=== PATIENT | male | born 1945 | race Caucasian/White ===

== ENCOUNTER 2021-01-19 16:07 | Outpatient (REF) | payer MEDICARE, BC, SELFPAY ==
--- NOTE | 2021-01-19 16:00 | SKI_PTH ---
PATIENT: Humhprey Poole LOC: [facility] U#:[id number] AGE/SX: 75/M ROOM: RE01/19/[address]: Vishal Mcbride : 1945 BED: DIS: 01/19/2021 SPEC #: [id number] RECD: 01/20/21 11:57 STATUS: OFELIA REKeila #: [id number] OTF: 01/19/21 16:[address]: Vishal Mcbride DEPT: Surgical Specimen RECD BY: Isamar Driver Tissues: 1 - SKIN BIOPSY(SHAVE/PUNCH) Procedures: SKIN LEVEL 4 Comments: [id number]
== END 2021-01-19 16:08 | disposition home or self-care (01) ==
LOC: NCHCN 16:07
PROVIDERS: PCP Physician Assistant; Visit Provider Physician Assistant
DX: D18.01 Hemangioma of skin and subcutaneous tissue (principal)
CPT/HCPCS: 88305

== ENCOUNTER 2021-11-04 06:12 | Day surgery (SDC) | payer MEDICARE, BC, SELFPAY ==
[2021-11-04 06:20] VITALS: BP 172/86; PULSE 82; RESP 18; TEMP 36.5; O2SAT 100
[2021-11-04] MEDS: Tropicam./Phenyleph. (1/2.5%) 5 ML BTL OS ×3 (06:37→06:48)
--- NOTE | 2021-11-04 06:52 | ANES.PREOP_ITS ---
General Info Date of Service Date Performed: 11/04/21 Height: 5 ft 7.17 in Weight: 75.6 kg Body Mass Index (BMI): 25.9 Surgical Procedure: Operation Date: 11/04/21 07:40 Proposed Procedure Side Surgeon p Cataract Extraction with IOL Implant Left Felipe Larios MD Meds Allergies and Home Medications Allergies Allergy/AdvReac Type Severity Reaction Status Date / Time No Known Allergies Allergy Unverified 11/04/21 06:30 Home Medication Medication Instructions Recorded acetaminophen 500 mg tablet 500 mg PO Q12H PRN 11/02/21 (Acetaminophen Extra Strength) ascorbic acid (vitamin C) 500 mg 1,000 mg PO DAILY 11/02/21 tablet (Vitamin C) glucosamine sulfate 500 mg tablet 1,000 mg PO DAILY 11/02/21 (Glucosamine) omega-3 fatty acids 1 cap PO DAILY 11/02/21 Current Visit Medications: Current Medications Generic Name Dose Route Start Last Admin Trade Name Freq PRN Reason Stop Dose Admin Acetaminophen 1,000 mg 11/04/21 06:00 Acetaminophen 500 Mg Tab PO Q4H PRN PRN Miscellaneous Medication 0 ml 11/04/21 06:00 Prednisolone 1%, Moxifloxacin 0.5%, Nepafenac 0.1% 5ml Btl OS DIRECTED AMADO Miscellaneous Medication 0 ml 11/04/21 06:00 11/04/21 06:48 Tropicam./Phenyleph. (1/2.5%) 5 Ml Btl OS 1 drp DIRECTED AMADO Administration Tetracaine HCl 0 ml 11/04/21 06:00 Tetracaine 0.5% 4 Ml Btl OS DIRECTED [facility] Medical History Medical History (Updated 11/04/21 @ 07:06 by Felipe Larios MD) Cataract Diastolic murmur Tobacco Smoking/Tobacco Use Status: Former Tobacco Use Alcohol Alcohol Intake: former Substance Use Substance use: Never Substance use type: does not use Vital Signs and Lab Results Vital Signs Most Recent Vital Signs in EMR: Most Recent Vital Signs Temp Pulse Resp BP Pulse Ox 36.5 C 82 18 172/86 H 100 11/04/21 06:20 11/04/21 06:20 11/04/21 06:20 11/04/21 06:20 11/04/21 06:20 Lab Results Blood Type / Crossmatch: No Data to Display Complete Blood Count: No Data to Display Complete Metabolic Panel: No Data to Display Liver Function Panel: No Data to Display Coagulation Panel: No Data to Display Cardiac Panel: No Data to Display Arterial Blood Gas: No Data to Display Venous Blood Gas: No Data to Display Pancreas Panel: No Data to Display Thyroid Panel: No Data to Display Infectious Disease: No Data to Display Blood Cultures: No Data to Display Toxicology Panel: No Data to Display Anesthesia Assessment and Plan Anesthesia History Personal History: No History of Anesthesia Complications Family History: Family History Unknown Exercise Tolerance Exercise Tolerance: Metabolic Equivalents>4 Pertinent Negatives Pertinent Negatives: No Symptoms of GERD, No Major Cardiovascular Symptoms or Complaints, No Major Pulmonary Symptoms or Complaints and No History of CVA/TIA Cardiac & Pulmonary Exam Cardiac Exam: Normal S1/S2 Heart Sounds and Heart Murmur Present (Diastolic murmur getting worked up next week or so, mets >10, no symptoms) Pulmonary Exam: Clear Bilateral Breath Sounds Implantable Cardiac Device Does patient have a Pacemaker or an ICD?: No Airway Exam Known Difficult Airway: No Mallampati Class: 2 Mouth Opening: Normal (> 3cm) Thyromental Distance: Greater than 3 cm Neck Range of Motion: Full ROM Neck Circumference: Normal Teeth Condition: Normal Dentition ASA Classification ASA Score: ASA 2 Emergency Case?: No NPO Status NPO Status: NPO Clears >2 hours, Solids >8 hours Anesthesia Plan Resuscitation Status: Full Code Anesthesia Technique: MAC Anesthesia Airway Planned: Natural Airway Monitors Used: Standard Monitors
[2021-11-04 07:14] VITALS: BMI 25.9
[2021-11-04] MEDS: Tetracaine 0.5% 4 ML BTL OS (07:24)
[2021-11-04] MEDS: Lidocaine 2% Jelly 6 ML SYR (07:25)
[2021-11-04] MEDS: Povidone-Iodine Ophth 30 ML BTL (07:25)
[2021-11-04] MEDS: Balanced Salt Soln.-PLUS 500 ML BAG (07:30)
[2021-11-04] MEDS: Duovisc Viscoelastic System EACH 1 EACH (07:38)
[2021-11-04] MEDS: Trypan Blue 0.06% 0.5 ML SYR (07:39)
--- NOTE | 2021-11-04 07:58 | W.PM.DSUDISC ---
Discharge Plan Disposition Patient Disposition: HOME Condition: Good Discharge Details Attending Provider: Felipe Larios Primary Care Provider: Vishal Mcbride Home Meds and New Rx's Prescriptions: No Action glucosamine sulfate [Glucosamine] 500 mg Tablet 1,000 mg PO DAILY ascorbic acid (vitamin C) [Vitamin C] 500 mg Tablet 1,000 mg PO DAILY Fish Oil Capsule 1 cap PO DAILY acetaminophen [Acetaminophen Extra Strength] 500 mg Tablet 500 mg PO Q12H PRN Discharge Instructions Stand Alone Forms: Post-op Topical Cataract, Naye Pillai (DSU) Discharge Orders Discharge Orders: Discharge Order (Routine); Ordered 11/04/21 Ordered By: Felipe Larios
--- NOTE | 2021-11-04 07:59 | ROE_ITS ---
Date of service: 11/04/21 Time of Service: 07:59 Operative Note Operative Note DATE OF PROCEDURE: 11/04/21 PRE-OP DIAGNOSIS: Nuclear/cortical/posterior subcapsular cataract, left eye Poor red reflex secondary to cataract POST-OP DIAGNOSIS: same PROCEDURE: Cataract extraction using phacoemulsification with intraocular lens implant, left eye, using capsular staining with Vision Blue SURGEON: Felipe Larios ANESTHESIA TYPE: Local By Surgeon and MAC Refer to Anesthesia Record COMPLICATIONS: None Patient was transported to: same day Patient's condition: stable Implants: Wilfrido and Wilfrido / [employer] Tecnis [id number] Indications: Progressive decreased vision due to cataract, left eye, with poor red reflex Procedure Description: CATARACT SURGERY OPERATIVE REPORT PREOPERATIVE DIAGNOSIS: 1. Nuclear/cortical/posterior subcapsular cataract, left eye 2. Poor red reflex secondary to #1 POSTOPERATIVE DIAGNOSIS: Same OPERATION: 1. Cataract extraction using phacoemulsification with posterior chamber in traocular lens implant, left eye. 2. Capsular staining with Vision Blue IOL: IOL It Security Project Manager/Model: Wilfrido & Wilfrido / CAMERON Tecnis [id number] IOL Power: + 24.0 diopters IOL Serial Number: [id number] Optic Diameter: 6.0 mm Haptic/Overall Diameter: 13.0 mm PHACO INFO: Reuben Mobile[employer]urion Vision System with OZil and Active Fluidics Cumulative Dispersed Energy (CDE): 7.46 seconds SURGEON: Felipe Larios MD, CARMINA ANESTHESIA: Monitored A formerly [facility] Care (MAC), with local sub-tenon's anesthetic infiltration COMPLICATIONS: None SPECIMENS: None INDICATIONS FOR PROCEDURE: The patient is a 76-year-old gentleman with history of progressive decreased vision in his left eye secondary to the development of nuclear/cortical/posterior subcapsular cataract. 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 He is currently undergoing intravitreal injections for treatment. The option of cataract surgery in the left eye was offered to the patient and he wished to proceed. PROCEDURE: The correct surgical eye was identified and marked as the left eye and the pupil was dilated in the preoperative area using mydriatics and cycloplegics. The dilated pupil size was 4.5 mm. The patient elected to proceed without oral sedation. The patient was brought to the operating room where cardiopulmonary monitoring was instituted and surgical time-out was performed, confirming the correct operative eye and IOL power. Topical anesthesia was administered and ophthalmic povidone-iodine 5% was instilled into the conjunctival fornices. Lidocaine gel was applied to the cornea and the margarita-ocular area was prepped with Betadine 10% solution and draped in the usual sterile fashion for intraocular surgery, including an aperture drape. A Tegaderm transparent film dressing was cut in half and used to cover the lashes and lid margins. Care was taken to sequester the lashes and lid margins under the Tegaderm dressing. A lid speculum was placed between the lids of the operative eye and the Reuben Lux[employer] Revalia operating microscope was maneuvered into position. Daryn scissors were then used to make a conjunctival buttonhole approximately 6mm posterior to the limbus in the inferonasal quadrant. Blunt dissection was carried out to expose bare sclera, and a blunt-tipped sub-tenon?s anesthesia cannula was introduced and passed posteriorly along the globe where non- preserved plain lidocaine was injected into posterior sub-Tenon?s space. A sideport knife was used to make a paracentesis port superiorly/superiortemporally. Intraocular phenylephrine/lidocaine was injected int the anterior chamber.. Air was then injected into the anterior chamber, followed by Vision Blue, which was painted over the anterior capsule and then irrigated out using BSS. The anterior chamber was filled with viscoelastic. Viscoat was used to protect the corneal endothelium, and to provide some Visco dilation. A keratome knife was used to create a 2-plane near clear corneal tunnel extending approximately 2 mm into clear cornea temporally. A flap was raised on the anterior capsule and capsulorhexis forceps were used to complete a continuous curvilinear capsulorhexis of 5.0 mm. Balanced salt solution was then used to perform cortical cleaving hydrodissection and nuclear hydrodelineation until the lens could be freely rotated within the capsular bag. The lens nucleus was then disassembled and removed within the capsular bag and iris plane using phacoemulsification. Residual cortical material was removed using the 45-degree angled silicone I/A tip with 0.3mm port. The posterior capsule was carefully polished to remove as much residual lens epithelial cells as safely possible. The capsular bag was then inflated and the anterior chamber deepened with viscoelastic. The lens implant described above was inserted into the capsular bag using the CAMERON Crawford Injector. A Kuglen hook was used to dial the IOL into position. Residual viscoelastic was then removed first from posterior to the IOL, then from the anterior chamber using the I/A handpiece. The lens implant was noted to center nicely within the capsular bag. The incisions were stromally hydrated, and the anterior chamber was reformed using BSS. Then 0.5cc of moxifloxacin 1.0mg/ml were injected into the capsular bag and anterior chamber. The incisions were checked with a Weck spear and found to be secure. Several drops of ophthalmic povidone-iodine 5% were then applied to the eye followed by two drops of Imprimis combination prednisolone/moxifloxacin/nepafenac solution. The drapes were removed and a clear plastic protective eye shield was placed over the eye. The patient was then returned to Same Day Surgery in stable condition.
[2021-11-04 08:05] VITALS: BP 163/67; PULSE 71; RESP 16; TEMP 36.6; O2SAT 97
--- NOTE | 2021-11-04 08:20 | W.ANESPOSTOP ---
Postoperative Evaluation Date, Time and Location Date Performed: 11/04/21 Time Performed: 08:09 Patient Location: Day Surgery Unit Vital Signs Most Recent Imported Vital Signs: Most Recent Vital Signs Temp Pulse Resp BP Pulse Ox 36.6 C 71 16 163/67 H 97 11/04/21 08:05 11/04/21 08:05 11/04/21 08:05 11/04/21 08:05 11/04/21 08:05 Pain Score Most Recent Pain Score: Most Recent Pain Score Pain Level 0 11/04/21 08:05 Assessment Mental Status: Awake (Alert & Oriented to Patient Baseline) Airway and Respiratory Function: Patent airway with normal (patient baseline) respiratory exam Cardiovascular Function: Hemodynamically Stable Hydration Status: Adequately Hydrated Nausea & Vomiting: No Nausea or Vomiting Pain: Pt. Denies Any Pain Peripheral Nerve Block: Patient did not receive a nerve block
== END 2021-11-04 08:21 | disposition home or self-care (01) ==
PROVIDERS: PCP Physician Assistant; Visit Provider Ophthalmology
PROC: (CPT 66984; principal; 2021-11-04 07:30)
DX: H25.042 Posterior subcapsular polar age-related cataract, left eye (principal)
CPT/HCPCS: 66984

== ENCOUNTER → 2021-11-14 03:03 | Outpatient (CLI) | payer MEDICARE, BC, SELFPAY ==
--- NOTE | 2021-11-14 15:01 | DI.US_ITS ---
APPROVED REPORT EXAM: Comprehensive 2D, Doppler, and color-flow Echocardiogram Patient Location: Out-Patient Cutter Hand: Roma Olea RDCS (AE) Indications: New murmur Other Information Study Quality: Adequate Conclusion Normal left ventricular wall thickness and chamber size. Estimated ejection fraction is 65%. Wall m otion is normal Normal right ventricular size and systolic function Both atria are normal in size There is no structural or hemodynamically significant valvular disease Wall motion Left Ventricle The left ventricle is normal size. The left ventricular systolic function is normal. The left ventric ular ejection fraction is within the normal range. There is normal left ventricular wall thickness. T here is normal LV segmental wall motion. There is no ventricular septal defect visualized. LVEF is 65 %. Right Ventricle The right ventricle is normal size. The right ventricular systolic function is normal. The RVSP is 34 .8mmHg. Atria The left atrium size is normal. The right atrium size is normal. The interatrial septum is intact wit h no evidence for an atrial septal defect. Aortic Valve The aortic valve is normal in structure. Aortic valve is trileaflet. There is no aortic valvular sten osis. No aortic regurgitation is present. Mitral Valve The mitral valve is normal in structure. No evidence of mitral valve stenosis. Mild mitral regurgitat ion. Tricuspid Valve The tricuspid valve is normal in structure. There is no tricuspid valve stenosis. Mild tricuspid regu rgitation. Pulmonic Valve The pulmonary valve is normal in structure. There is no pulmonic valvular stenosis. Trace pulmonic re gurgitation. Great Vessels The aortic root is normal in size. The ascending aorta is mildly dilated. Aortic arch is normal in ca liber. IVC is normal in size and collapses >50% with inspiration. Pericardium There is no pericardial effusion. 2D Dimensions IVSD d PLAX 1.02 cm M: 0.6-1.2 LV Vol A2C d MOD 126.7 mL LVPW d PLAX 1.00 cm M: 0.6 - 1.2 LV Vol A4C d MOD 113.2 mL LVID d PLAX 5.14 cm M: 4.2 - 5.8 LA vol/ BSA A2C s A-L 36.8 mL/m2 LVDs 3.25 cm M: 2.5 - 4.0 LA vol/ BSA A4C s A-L 22.7 mL/m2 Ao Root d 3.63 cm M: 3.1 - 3.7 LA Vol/ BSA Biplane s A-L 30.3 mL/m2 RA Area A4C 13.04 cm2 LA Area A4C s MOD 16.01 cm2 RA Vol/ BSA A4C s A-L 14.3 mL/m2 LA Area A2C s MOD 21.37 cm2 Ao Asc Diam d 3.89 cm M: 2.6 - 3.4 LV EF A4C MOD 65.8 % LV EF Teichholz 65.5 % LV EF A2C MOD 65.1 % LVEF (Spears's) 66.79 % M: 52 - 72 LV EF Biplane MOD 66.8 % LV Volume 95.79 mL M: 62 - 150 SV 83.63 mL LV Volume Index 50.95 mL/m2 M: 34 - 74 SV Index 44.31 mL/m2 LV Vol Biplane MOD 125.2 mL FS 36.20 % M-Mode TAPSE 2.40 cm (M/F) >1.7 LV Diastology MV E' medial 0.110 (>0.07 m/s) E/A Ratio 0.8 LV E/e MED 7.00 (<14) MV E Vmax 0.77 (0.4-1.3 m/s) MV E' lateral 0.123 (>0.1 m/s) MV A Vmax 1.00 (0.4-1.3 m/s) LV E/e LAT 6.25 (<14) MV E/A Ratio 0.75 MV E/E' medial 7.03 MV E/E' lateral 6.27 Aortic Valve LVOT Area 3.33 cm2 AoV Area Vmax 2.47 cm2 LVOT Vmax 1.24 m/s AoV Area/ BSA (Vmax) 1.31 cm2/m2 LVOT Mean Erik. 0.78 m/s WILMA Mean Erik. 2.42 cm2 LVOT Peak Grad 6.2 mmHg WILMA Mean Erik. Index 1.28 cm2/m2 LVOT Mean Grad 2.9 mmHg LVOT VTI 0.277 m LVOT Diam s 2.05 cm AoV Vmax 1.68 m/s Velocity Ratio 0.73 AoV Mean Erik. 1.08 m/s AoV Peak Grad 11.3 mmHg LVOT SV 92.34 mL AoV Mean Grad 5.5 mmHg AoV VTI 0.317 m AoV Area VTI 2.91 cm2 AoV Area/ BSA (VTI) 1.54 cm/m2 Mitral Valve MV DT 204 (160-240 msec) MV PHT 59 msec MV Area PHT 3.71 cm2 MV VTI 0.305 m MV Area VTI 3.03 (4.0-6.0 cm2) Pulmonary Valve PV Vmax 1.03 (0.5-1.5 m/s) RVOT Peak Gr. 3.38 mmHg PV Peak Grad 4.2 mmHg RVOT Mean Gr. 1.75 mmHg PV Mean Grad 2.3 mmHg RVOT VTI 0.200 m PV VTI 0.214 m RVOT Vmax 0.92 m/s Tricuspid Valve TR Peak Grad 31.7 mmHg TR Vmax 2.82 m/s RA Pressure 3.00 mmHg RVSP (TR) 34.8 mmHg
== END ==
PROVIDERS: PCP Physician Assistant; Visit Provider Physician Assistant
DX: R01.1 Cardiac murmur, unspecified (principal)
CPT/HCPCS: 93306

== ENCOUNTER → 2022-01-12 02:05 | Outpatient (CLI) | payer MEDICARE, BC, SELFPAY ==
--- NOTE | 2022-01-12 | DI.RAD_ITS ---
Exam(s) XR SHOULDER LT COMPLETE 2+V EXAM: XR SHOULDER LT COMPLETE 2+V CLINICAL HISTORY: PAIN LEFT SHOULDER M25.512 TECHNIQUE: COMPARISON: No exams were available for comparison FINDINGS: Five views were obtained. There is severe loss of cartilaginous joint space of the glenohumeral join t. There are very prominent marginal osteophytes of the glenoid and humeral head, particularly infer iorly at the humeral head. There are subchondral sclerotic and cystic changes of the humeral head an d glenoid. There are mild hypertrophic degenerative changes of the AC joint noted as well. IMPRESSION: Severe DJD glenohumeral joint. RADIATION DOSE DELIVERED: Total DLP
== END ==
PROVIDERS: PCP Physician Assistant; Visit Provider Physician Assistant
DX: M19.012 Primary osteoarthritis, left shoulder (principal)
CPT/HCPCS: 73030

== ENCOUNTER 2022-08-29 11:39 | Inpatient (IN) | payer MEDICARE, BC, SELFPAY ==
[2022-08-29] VITALS (52 sets, daily range): BP systolic 71–171; BP diastolic 41–78; PULSE 65–106; RESP 8–31; TEMP 36.2–36.8; O2SAT 90–99
[2022-08-29] MEDS: Water,Injection,Sterile 10 ML VIAL (12:14)
[2022-08-29] MEDS: OLANZapine 10 MG VIAL IM (12:14)
[2022-08-29] MEDS: Midazolam 2 MG/2 ML VIAL 5 MG IM ×2 (12:14→18:45)
--- NOTE | 2022-08-29 12:15 | RT.EKG_ITS ---
APPROVED REPORT Exam: Resting ECG Reason for Exam: electrolyte abnormality Patient Location: E HR:92 bpm ECG Measurements Heart Rate 92 AXIS NH 169 P 42 QRSd 92 QRS -29 QT 368 T 23 QTc 456 Conclusion Sinus rhythm...normal P axis, V-rate 60- 99 Probable left atrial enlargement...P >50mS, <-0.10mV V1 Borderline ST elevation, anterior leads...ST >0.15mV in V1-V4
--- NOTE | 2022-08-29 12:15 | DI.CT_ITS ---
Exam(s) CT HEAD WO EXAM: CT HEAD WO CLINICAL HISTORY: ams. TECHNIQUE: Imaging Protocol: Axial computed tomography images with coronal and sagittal reformatted images were created and reviewed COMPARISON: No exams were available for comparison FINDINGS: Ventricles and Extra axial spaces: Normal in size and morphology for the patient's age. Hemorrhage: None. Cerebral parenchyma: There is no evidence of an acute territorial infarct. There are subtle areas of decreased attenuation in the white matter likely reflecting small vessel ischemic disease. Midline shift: None. Brainstem/Cerebellum: Normal. Calvarium: Normal. Visualized Paranasal sinuses/Mastoids: Clear. Soft Tissues: Unremarkable. IMPRESSION: 1. No acute intracranial process. 2. Findings were discussed with the emergency department at 1:21 p.m. on 08/29/2022. RADIATION DOSE DELIVERED: 766mGy.cm Total DLP DATA REPOSITORY: All CT scans at this facility are submitted to the National Radiology Data Registry (NRDR) Dose Index Registry (DIR) with the [employer] (ACR). RADIATION OPTIMIZATION: All CT scans at this facility use at least one of these dose optimization te chniques: automated exposure control; mA and/or kV adjustment per patient size (includes targeted exa ms where dose is matched to clinical indication); or iterative reconstruction.
--- NOTE | 2022-08-29 12:16 | ED.GENADUL_ITS ---
Discharge Plan Disposition Patient Disposition: Admit to [facility] Discharge Details Chief Complaint: GenMedical Clinical Impression: Acute delirium, AMS (altered mental status), Insomnia Admit Date/Time: 08/29/22 14:05 Admit Provider: Felipe Nicolas Attending Provider: Felipe Nicolas Primary Care Provider: Vishal Mcbride ED Provider: Shaan Coulter Medical Decision Making 76-year-old gentleman presents with altered mental status. Certainly could be d elirium especially in the setting of severe insomnia. He is agitated now and will not allow us to perform any tasks. He is altered and family is agreeable to us giving him some olanzapine and Versed to help him sleep and rest so that we may perform additional test. Nonfocal neurologic exam so less likely to represent stroke or other cause of his symptoms but will get CT head. Will get CBC to look for anemia. We will get broad labs look for electrolyte or metabolic cause of the patient's symptoms. No signs of infection on exam but will check chest x-ray and urinalysis to look for pneumonia and UTI respectively. Otherwise no focal signs of infection on exam. 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 Will await sedation as above and reevaluate after initial testing. Imaging Data Radiologic Study: Attestation: I personally reviewed and interpreted this imaging study as follows: Imaging: X-Ray (chest) My impression: unremarkable Radiologist's impression: unremarkable Radiologic Study #2: Attestation: I personally reviewed and interpreted this imaging study as follows: Imaging: CT Scan (ct head) My impression: unremarkable Radiologist's impression: unremarkable Lab Data Lab results reviewed: Yes I reviewed the patient's lab results. ECG Data Attestation: I personally reviewed and interpreted this ECG (s) as follows: Prior ECG tracings: available for review Interpretation: Normal sinus rhythm with normal rate. Normal intervals and no ST segment changes. HPI General Mode of arrival: ambulatory . Date/Time Provider Initiated Documentation: 08/29/22 11:51 . Limitations to Documentation: altered mental status . Information obtained by: patient and family . HPI Narrative: 76-year-old male previously healthy presents with altered mental status. Family says this happened in a similar episode about 10 years ago and he was admitted to [facility] for about 5 days and ended up self resolving. Family says for the last 4 days he has not slept. He started to act strange yesterday. Very confused last evening and not speaking to anyone. He will not give me any history when I try and speak with him. Denying any complaints. Related Data Home Medications Medication Instructions Recorded Confirmed acetaminophen 500 mg tablet 500 mg PO Q12H PRN 11/02/21 11/04/21 (Acetaminophen Extra Strength) ascorbic acid (vitamin C) 500 mg 1,000 mg PO DAILY 11/02/21 11/04/21 tablet (Vitamin C) glucosamine sulfate 500 mg tablet 1,000 mg PO DAILY 11/02/21 11/04/21 (Glucosamine) omega-3 fatty acids 1 cap PO DAILY 11/02/21 11/04/21 Allergies Allergy/AdvReac Type Severity Reaction Status Date / Time No Known Allergies Allergy Unverified 01/09/22 09:59 General Stated Complaint: GenMedical JOEL: 2 Review of Systems Unobtainable due to mental status PFSH All Active Problems (Updated 08/29/22 @ 15:56 by Shaan Coulter MD) AMS (altered mental status) (Acute) Insomnia (Acute) Acute delirium (Acute) Medical History Cataract Diastolic murmur Social History Smoking/Tobacco Use Status: Former Tobacco Use Quit Date: 04/09/66 Smoking risk assessment performed?: Yes Alcohol Intake: former Drug use: Never Substance use type: does not use Do you feel safe at home: Yes Do you feel safe in your relationship?: Yes Exam Const General: other (elderly but physically does not appear frail. ) Orientation: alert and awake [facility] Head: normal to inspection Ears: external ears normal Mouth: moist mucous membranes Eyes Pupils: PERRL EOM: EOM intact bilaterally and No nystagmus Neck Neck: full ROM and no tracheal deviation Chest Chest: normal inspection of the chest Resp Auscultation: clear to auscultation bilaterally Cardio Rate: regular rate Rhythm: regular rhythm GI Inspection: normal to inspection Palpation: soft, no guarding, not rigid and nontender Back/Spine/Pelvis Back: No no CVA tenderness Thoracic/Lumbar Spine: thoracic and lumbar spine normal to inspection Skin General skin exam: no rashes or lesions noted Neuro General: patient alert and patient awake Cranial Nerves: CN's II-XI intact bilaterally, PERRL and no nystagmus Cognition: abnormal cognition Motor: muscle tone normal throughout and strength 5/5 throughout Sensory Exam: no sensory deficits noted Extrem General: normal to inspection Psych Other: Agitated but redirectable by son. Course Reevaluation(s) Time: 15:55 Reevaluation: Labs and imaging unremarkable. Patient still acutely altered. Will need further monitoring for clinical improvement. Will admit to the hospitalist service for further treatment and monitoring. Consultations Consultation #1: diony. Time: 15:55 Vital Signs Vital signs: Vital Signs Temperature 36.2 C L 08/29/22 11:50 Pulse 100 H 08/29/22 11:50 Respiratory Rate 20 08/29/22 11:50 Blood Pressure 168/77 H 08/29/22 11:50 Pulse Oximetry 99 08/29/22 11:50 Temperature 36.2 C L 08/29/22 11:50 Pulse 100 H 08/29/22 11:50 Respiratory Rate 20 08/29/22 11:50 Blood Pressure 168/77 H 08/29/22 11:50 Blood Pressure Position Sitting 08/29/22 11:50 Pulse Oximetry 99 08/29/22 11:50 Oxygen Delivery Method Room Air 08/29/22 11:50 Oxygen Flow Rate 0 08/29/22 11:50
--- NOTE | 2022-08-29 12:22 | DI.RAD_ITS ---
Exam(s) XR CHEST 1V IN DI DEPT EXAM: XR CHEST 1V IN DI DEPT CLINICAL HISTORY: ams. ? pneumonia TECHNIQUE: 2D digital imaging was performed of the chest. One image was obtained. An AP view was ob tained. COMPARISON: No exams were available for comparison FINDINGS: MEDIASTINUM: Normal. HEART: Normal. PULMONARY VASCULATURE: Normal. LUNGS: Clear. PLEURAL SPACE: No pleural effusion or pneumothorax. BONE:Within normal limits for the patient's age. OTHER FINDINGS:Normal. IMPRESSION: No acute pulmonary findings. DATA REPOSITORY: RADIATION DOSE DELIVERED:
--- OUTSIDE RECORDS SUMMARY | 2022-08-29 12:25 | XMS_ITS | CCD ---
Author Name Unknown Address [address] [place] [address] [id number] Organization Unknown Address [address] [place] [address] [id number] Care Team Providers [employer] Name Role Phone YASHIRA SHELDON Attending Physician [phone] YASHIRA SHELDON Rounding (Secondary) Physician [phone] Vital Signs Unknown or Not Available. Allergies Unknown or Not Available. Procedures Unknown or Not Available. History of Immunizations Unknown or Not Available. Problems Unknown or Not Available. Results Unknown or Not Available. Active Medications Unknown or Not Available. Medications Administered During Visit Unknown or Not Available. Encounters Encounter Diagnosis Diagnosis Code Start Date Pain in left shoulder [id number] 04/18/2022 Social History Unknown or Not Available. Patient Decision Aids Unknown or Not Available. Discharge Instructions You were admitted to [facility] on 04/18/2022 14:23 with a principal diagnosis of Pain in left shoulder You were discharged from [facility] on 04/18/2022 00:00 Should you have any questions prior to discharge, please contact a member of your healthcare team. If you have left the hospital and have any questions, please contact your primary care physician. Chief Complaint and Reason For Visit Unknown or Not Available. Function Status Unknown or Not Available. Plan of Care Unknown or Not Available. Referral/Transition of Care Unknown or Not Available.
[2022-08-29 12:52] LABS: Abs Immature Grans 0.02 10^3/uL (0.0-0.06); Absolute Basophil Count 0.01 10^3/uL (0.0-0.2); Absolute Lymphocyte Count 0.39 10^3/uL (1.2-3.4); Absolute Neutrophil Count 8.29 10^3/uL (1.2-6.7); Basophils % 0.1; HCT 39.6 % (40.0-50.0); HGB 13.7 g/dL (13.5-17.5); Immature Grans % 0.2; Lymphocytes % 4.3; MCHC 34.6 % (32.0-36.0); MCV 87 fL (80-95); MPV 10.6 fL (8.0-11.0); Monocytes % 4.4; Platelet Count 273 10^3/uL (130-400); RBC 4.57 10^6/uL (4.36-5.78); RDW 11.4 % (11.8-14.1); RDW-SD 35.8 fL; WBC 9.11 10^3/uL (4.4-10.8)
[2022-08-29 13:02] LABS: Ammonia < 10 umol/L (11-32)
[2022-08-29 13:03] LABS: Prothrombin Time 10.4 sec (9.3-11.0)
[2022-08-29 13:16] LABS: ALT 34 U/L (16-63); AST 47 U/L (15-37); Albumin 4.3 g/dL (3.4-5.0); Alkaline Phosphatase 77 U/L (46-116); Anion Gap 9.6 mmol/L (3-11); BUN 13 mg/dL (7-18); Bilirubin, Total 0.6 mg/dL (0.2-1.0); CO2 26.4 mmol/L (21.0-32.0); CREATININE 0.8 mg/dL (0.70-1.30); Calcium 8.8 mg/dL (8.5-10.1); Chloride 96 mmol/L (98-107); ETHANOL BLOOD < 3.0 mg/dL (<10); Estimated GFR 92.87 (mL/min/1.73m2); Glucose 150 mg/dL (74-106); Magnesium 1.8 mg/dL (1.8-2.4); NT-proBNP 280 pg/mL (<300); Potassium 3.6 mmol/L (3.5-5.1); Sodium 132 mmol/L (136-145); TSH (W/Ref FT4) 0.63 uIU/mL (0.36-3.74); Total Protein 7.5 g/dL (6.4-8.2); Troponin I < 50 ng/L (<or=60)
--- NOTE | 2022-08-29 13:21 | NUR.NOTE ---
per MD Villanueva pts head CT is negative. report verbalized to MD Coulter
--- NOTE | 2022-08-29 14:07 | W.PM.HP.N ---
Date of service: 08/29/22 Time of Service: 14:07 Assessment and Plan Assessment and plan (1) Acute delirium: Status: Acute Assessment and plan: no medical explanation although urine still pending, need to add LP, anesthesia consulted. possibly d/t insomnia. possible new psychiatric disorder but no history of possible decompensation of undiagnosed dementia in setting of insomnia admit to hospitalist for further evaluation and monitoring received olanzapine and versed in the ED and now sleeping. safety precautions discussed with DR Nicolas. History of Present Illness History of Present Illness Chief Complaint: altered mental status Narrative: This is a 76 year old male with no significant past medical history who reportedly has not been sleeping past few nights who has developed increased confusion. He was brought to the ED for evaluation and no medical condition to explain his symptoms, although urine still pending at time of discharge. Hospitalist services contacted to admit for further evaluation and management. Review of Systems All systems reviewed & are unremarkable except as noted in HPI and below PFSH All Active Problems (Updated 08/29/22 @ 15:56 by Shaan Coulter MD) AMS (altered mental status) (Acute) Insomnia (Acute) Acute delirium (Acute) Medical History Cataract Diastolic murmur Social History Smoking/Tobacco Use Status: Former Tobacco Use Quit Date: 04/09/66 Smoking risk assessment performed?: Yes Alcohol Intake: former Drug use: Never Substance use type: does not use Do you feel safe at home: Yes Do you feel safe in your relationship?: Yes Meds Allergies and Home Medications Allergies Allergy/AdvReac Type Severity Reaction Status Date / Time No Known Allergies Allergy Unverified 01/09/22 09:59 Home Medications Medication Instructions Recorded Confirmed Type acetaminophen 500 mg tablet 500 mg PO Q12H PRN 11/02/21 11/04/21 History (Acetaminophen Extra Strength) ascorbic acid (vitamin C) 500 mg 1,000 mg PO DAILY 11/02/21 11/04/21 History tablet (Vitamin C) glucosamine sulfate 500 mg tablet 1,000 mg PO DAILY 11/02/21 11/04/21 History (Glucosamine) omega-3 fatty acids 1 cap PO DAILY 11/02/21 11/04/21 History Exam Const General: no acute distress Nutritional Appearance: average body habitus Orientation: obtunded Limitations: altered mental status HENMT Head: normal to inspection and atraumatic Face and sinus: normal facial exam Resp Effort & Inspection: normal respiratory effort Cardio Rate: regular rate Rhythm: regular rhythm GI Inspection: normal to inspection Skin General skin exam: no rashes or lesions noted Psych Appearance: grossly normal Mental Status: other (sedate) Mood: other (sedate) Results Labs 08/31/22 08:00 08/31/22 08:00 Labs: Laboratory Results - last 24 hr 08/29/22 08/29/22 08/29/22 12:44 12:44 12:44 WBC 9.11 RBC 4.57 Hgb 13.7 Hct 39.6 L MCV 87 MCH 30.0 MCHC 34.6 RDW 11.4 L Plt Count 273 MPV 10.6 Immature Gran % 0.2 Neutrophils % 91.0 Lymphocytes % 4.3 Monocytes % 4.4 Eosinophils % 0.0 Basophils % 0.1 Nucleated RBC % 0.0 Absolute Neutrophils 8.29 H Absolute Lymphocytes 0.39 L Absolute Monocytes 0.40 Absolute Eosinophils 0.00 Absolute Basophils 0.01 PT INR Sodium 132 L Potassium 3.6 Chloride 96 L Carbon Dioxide 26.4 Anion Gap 9.6 BUN 13 Creatinine 0.8 Est GFR (CKD-EPI 2020) 92.87 Glucose 150 H Calcium 8.8 Magnesium 1.8 Total Bilirubin 0.6 AST 47 H ALT 34 Alkaline Phosphatase 77 Ammonia < 10 L Troponin I < 50 NT-Pro-B Natriuret Pep 280 Total Protein 7.5 Albumin 4.3 TSH 0.63 Ethyl Alcohol < 3.0 08/29/22 12:44 WBC RBC Hgb Hct MCV MCH MCHC RDW Plt Count MPV Immature Gran % Neutrophils % Lymphocytes % Monocytes % Eosinophils % Basophils % Nucleated RBC % Absolute Neutrophils Absolute Lymphocytes Absolute Monocytes Absolute Eosinophils Absolute Basophils PT 10.4 INR 1.0 Sodium Potassium Chloride Carbon Dioxide Anion Gap BUN Creatinine Est GFR (CKD-EPI 2020) Glucose Calcium Magnesium Total Bilirubin AST ALT Alkaline Phosphatase Ammonia Troponin I NT-Pro-B Natriuret Pep Total Protein Albumin TSH Ethyl Alcohol Last Vital Signs Temp 36.2 C L 08/29/22 11:50 Pulse 100 H 08/29/22 11:50 Resp 14 08/29/22 12:57 BP 168/77 H 08/29/22 11:50 Pulse Ox 99 08/29/22 11:50 Time Spent Time spent with Patient: 40-54 minutes Time was spent: preparing to see the patient(eg.review tests), obtaining and/or reviewing separately otained hiistory, ordering medications,tests, procedures and indepentently interpreting results
--- NOTE | 2022-08-29 16:19 | ANES.PREOP_ITS ---
General Info Height: 5 ft 7 in Weight: 72.575 kg Body Mass Index (BMI): 25.0 Meds Allergies and Home Medications Allergies Allergy/AdvReac Type Severity Reaction Status Date / Time No Known Allergies Allergy Unverified 01/09/22 09:59 Home Medication Medication Instructions Recorded acetaminophen 500 mg tablet 500 mg PO Q12H PRN 11/02/21 (Acetaminophen Extra Strength) ascorbic acid (vitamin C) 500 mg 1,000 mg PO DAILY 11/02/21 tablet (Vitamin C) glucosamine sulfate 500 mg tablet 1,000 mg PO DAILY 11/02/21 (Glucosamine) omega-3 fatty acids 1 cap PO DAILY 11/02/21 Current Visit Medications: Current Medications Generic Name Dose Route Start Last Admin Trade Name Freq PRN Reason Stop Dose Admin Acetaminophen 650 mg 08/29/22 14:18 Acetaminophen 325 Mg Tab PO Q4H PRN PRN Dimethicone/Zinc Oxide 0 gm 08/29/22 14:05 Cristina Protect Cream 142 Gm Tube TP PRN PRN IV Miscellaneous Supplies 1 each 08/29/22 12:30 Iv Access-Emergency Dept IV DIRECTED AMADO Melatonin 3 mg 08/29/22 22:00 Melatonin 3 Mg Tab PO HS AMADO Sodium Chloride 0 ml 08/29/22 12:22 Normal Saline Flush 10 Ml Syr IVP PRN PRN PFSH Active Problems Active Problems: Problem Status Onset Code AMS (altered mental status) R41.82 Insomnia G47.00 Acute delirium R41.0 Cortical cataract of left eye H26.9 Nuclear sclerotic cataract of left eye H25.12 Posterior subcapsular age-related cataract of left eye H25.042 Medical History Medical History Cataract Diastolic murmur Tobacco Smoking/Tobacco Use Status: Former Tobacco Use Alcohol Alcohol Intake: former Substance Use Substance use: Never Substance use type: does not use Vital Signs and Lab Results Vital Signs Most Recent Vital Signs in EMR: Most Recent Vital Signs Temp Pulse Resp BP Pulse Ox 36.5 C 102 H 18 170/78 H 98 08/29/22 15:06 08/29/22 15:06 08/29/22 15:06 08/29/22 15:06 08/29/22 15:06 Lab Results 08/29/22 12:44 08/29/22 12:44 Blood Type / Crossmatch: No Data to Display Complete Blood Count: White Blood Count 9.11 10^3/uL (4.4-10.8) 08/29/22 12:44 Red Blood Count 4.57 10^6/uL (4.36-5.78) 08/29/22 12:44 Hemoglobin 13.7 g/dL (13.5-17.5) 08/29/22 12:44 Hematocrit 39.6 % (40.0-50.0) L 08/29/22 12:44 Platelet Count 273 10^3/uL (130-400) 08/29/22 12:44 Complete Metabolic Panel: Sodium 132 mmol/L (136-145) L 08/29/22 12:44 Potassium 3.6 mmol/L (3.5-5.1) 08/29/22 12:44 Chloride 96 mmol/L (98-107) L 08/29/22 12:44 Carbon Dioxide 26.4 mmol/L (21.0-32.0) 08/29/22 12:44 BUN 13 mg/dL (7-18) 08/29/22 12:44 Creatinine 0.8 mg/dL (0.70-1.30) 08/29/22 12:44 Est GFR (CKD-EPI 2020) 92.87 (mL/min/1.73m2) 08/29/22 12:44 Magnesium 1.8 mg/dL (1.8-2.4) 08/29/22 12:44 Calcium 8.8 mg/dL (8.5-10.1) 08/29/22 12:44 Albumin 4.3 g/dL (3.4-5.0) 08/29/22 12:44 Glucose 150 mg/dL (74-106) H 08/29/22 12:44 Liver Function Panel: Alanine Aminotransferase (ALT/SGPT) 34 U/L (16-63) 08/29/22 12: 44 Aspartate Amino Transf (AST/SGOT) 47 U/L (15-37) H 08/29/22 12: 44 Coagulation Panel: INR International Normalized Ratio 1.0 (0.9-1.1) 08/29/22 12:4 4 Prothrombin Time 10.4 sec (9.3-11.0) 08/29/22 12:44 Cardiac Panel: Troponin I < 50 ng/L (<or=60) 08/29/22 NT-Pro-B Natriuret Pep 280 pg/mL (<300) 08/29/22 Arterial Blood Gas: No Data to Display Venous Blood Gas: No Data to Display Pancreas Panel: No Data to Display Thyroid Panel: Thyroid Stimulating Hormone (TSH) 0.63 uIU/mL (0.36-3.74) 08/29 12:44 Infectious Disease: No Data to Display Blood Cultures: No Data to Display Toxicology Panel: Ethyl Alcohol Level < 3.0 mg/dL (<10) 08/29/22 12:44 Urine Amphetamines Screen Pending 08/29/22 12:45 Urine Benzodiazepines Screen Pending 08/29/22 12:45 Urine Barbiturates Screen Pending 08/29/22 12:45 Urine Cocaine Screen Pending 08/29/22 12:45 Urine Opiates Screen Pending 08/29/22 12:45 Ur Tricyclic Antidepressants Screen Pending 08/29/22 12: 45 Ur Tetrahydrocannabinol (THC) Scrn Pending 08/29/22 12:4 5 Anesthesia Assessment and Plan Anesthesia History Personal History: No History of Anesthesia Complications Family History: Family History Unknown Exercise Tolerance Exercise Tolerance: Metabolic Equivalents>4 Pertinent Negatives Pertinent Negatives: No Symptoms of GERD, No Major Cardiovascular Symptoms or Complaints, No Major Pulmonary Symptoms or Complaints and No History of CVA/TIA Cardiac & Pulmonary Exam Cardiac Exam: Normal S1/S2 Heart Sounds Pulmonary Exam: Clear Bilateral Breath Sounds Implantable Cardiac Device Does patient have a Pacemaker or an ICD?: No Airway Exam Known Difficult Airway: No Mallampati Class: 2 Mouth Opening: Normal (> 3cm) Thyromental Distance: Greater than 3 cm Neck Range of Motion: Full ROM Neck Circumference: Normal Teeth Condition: Normal Dentition ASA Classification Emergency Case?: No NPO Status NPO Status: NPO Clears >2 hours, Solids >8 hours Anesthesia Plan Resuscitation Status: Full Code Anesthesia Technique: Spinal Anesthesia Airway Planned: Natural Airway Monitors Used: Standard Monitors
[2022-08-29] MEDS: Ziprasidone 20 MG VIAL IM (16:20)
[2022-08-29] MEDS: dexmedeTOMidine IN 0.9 % NACL 400 MCG/100 ML BTL 5.443 MCG IV (18:30)
[2022-08-29] MEDS: Normal Saline Flush 10 ML SYR IVP (18:31)
--- NOTE | 2022-08-29 19:07 | ANES.PROC_ITS ---
Lumbar Puncture Date Performed: 08/29/22 Procedure Time: 19:00 Requesting Provider: Felipe Nicolas Procedure Location: Intensive Care Unit Standard Monitors Applied: ECG, Blood Pressure, SpO2 and See EMR for corresponding vital signs Patient Position: Right Lateral Decubitus Timeout Performed: Yes Sedation Given (Indicate Dose Given): Directed by Requesting Provider (melodiex gtt), Versed IV Dose:: 2 mg and Precedex IV Dose:: Total of 36 mcg given in 8- 12mcg doses Patient Mental Status: Other (altered mental status, slightly sedated) Sterility: Hand Hygiene, Surgical Cap, Surgical Mask, Sterile Gloves, Sterile Drape/Sheet, Chlorhexidine and Emergency Procedure Placement Site: L4-L5 Interspace Spinal Needle Type: [employer] 22 Gauge Needle Length: 3.5 Inch Lumbar Puncture Procedure: Site Prepped, Sterile Drape Placed, 1% Lidocaine to skin and subcutaneous tissue with 25G needle, Spinal Needle Placed, Negative Heme, Positive CSF Flow, CSF Specimen placed into Tubes in Sequential Order and Specimen Labeled, Sent to Lab (by RN) Ultrasound: Not Used Paresthesia: None Number of Previous Attempts by Other Providers: 0 Number of Attempts (See previous attempts in note section): 1 Procedure Tolerated: No Complications Procedure Outcome: Successful Procedure Comment:: Titrated precedex and midazolam to a state of increased cooperation over approx 20 min before procedure start. Still required 2 nurses to hold patient in position and still enough to obtain CSF samples. VSS, spont resp, no O2 needed. Performed By: Juana Noble
[2022-08-29 19:29] LABS: Bilirubin Negative (Negative); Blood Negative (Negative); Clarity Clear (Clear); Glucose Negative (Negative); Ketones 80 mg/dL (Negative); Leukocyte Esterase Negative (Negative); Nitrite Negative (Negative); Specific Gravity 1.015 (1.005-1.025); Urobilinogen 0.2 mg/dL (Up to 0.2)
[2022-08-29 19:33] LABS: *AMPHETAMINES SCREEN URINE Negative (Negative); *BARBITURATES SCREEN URINE Negative (Negative); *BENZODIAZEPINES SCREEN URINE Positive (Negative); Cannabinoids THC Negative (Negative); Cocaine Screen,Urine Negative (Negative); METHADONE URINE SCREEN Negative (Negative); OPIATES URINE SCREEN Negative (Negative)
[2022-08-29 19:34] LABS: Tricyclic Antidepressants Negative (Negative)
[2022-08-29 19:35] LABS: Bacteria Negative HPF (Negative); C & S Indicated? No; Casts Negative LPF (Negative); Crystals Negative HPF (Negative); Epithelial Cells Rare HPF (Negative); Mucus Negative (Negative); RBC 0-2 HPF (0-2); WBC 0-2 HPF (0-5)
[2022-08-29] MEDS: Lidocaine 2% Jelly 6 ML SYR (19:35)
[2022-08-29 19:54] LABS: Clarity Clear; Glucose (CSF) 86 mg/dL (40-70); RBC 1 /mm3 (0-5); Tube # 4; WBC 1 /uL (0-5); Xanthochromia Absent
[2022-08-29 20:02] LABS: Total Protein (CSF) 46 mg/dL (15-45)
[2022-08-29] MEDS: Normal Saline 500 ML 30 ML IV (20:35)
[2022-08-29] MEDS: cefTRIAXone 2 GM/50 ML BAG IVPB (21:47)
--- NOTE | 2022-08-29 22:29 | NUR.NOTE ---
Pt's calls states pt has always been driven, has OCD behavior and refused health care/mental health care. pt never sleeps well. Yrs ago he stopped sleeping for days and became confused and irritable but was not violent. this time he stopped sleeping again and last night I became afraid and called my son to come over. my was up for days becoming more and more irritable and confused and had been sitting in his room writing. My son cam over and just keep writing all night. My son left. In the morning I woke to my coming into my room, we have separate bedrooms, and he said, 'i'm going to live forever, Im going to kill you' then he jumped ontop of me on my bed, I screamed, ' stop it!' and kicked my knee into him and got away. I am scared, will you call if he leaves the hospital? What should I do? gave number for [employer] to , advised calling them for more guidance. Advised that would post note here on communication board to call her if he DC'd. Nursing Note:
[2022-08-29] MEDS: Normal Saline 1,000 ML 125 ML IV (22:40)
[2022-08-30] VITALS (42 sets, daily range): BP systolic 87–164; BP diastolic 49–84; PULSE 62–88; RESP 10–24; TEMP 36.6–38.9; O2SAT 90–96
[2022-08-30] MEDS: dexmedeTOMidine IN 0.9 % NACL 400 MCG/100 ML BTL 7.258 MCG IV ×2 (06:07→20:01)
[2022-08-30 06:27] LABS: Abs Immature Grans 0.02 10^3/uL (0.0-0.06); Absolute Basophil Count 0.01 10^3/uL (0.0-0.2); Absolute Lymphocyte Count 0.75 10^3/uL (1.2-3.4); Absolute Monocyte Count 0.84 10^3/uL (0.1-0.8); Absolute Neutrophil Count 7.19 10^3/uL (1.2-6.7); Basophils % 0.1; HCT 35.9 % (40.0-50.0); HGB 12.5 g/dL (13.5-17.5); Immature Grans % 0.2; Lymphocytes % 8.5; MCH 30.7 pg (27.0-33.0); MCHC 34.8 % (32.0-36.0); MCV 88 fL (80-95); MPV 10.6 fL (8.0-11.0); Monocytes % 9.5; Neutrophils % 81.7; Platelet Count 257 10^3/uL (130-400); RBC 4.07 10^6/uL (4.36-5.78); RDW 11.6 % (11.8-14.1); RDW-SD 37.2 fL; WBC 8.81 10^3/uL (4.4-10.8)
[2022-08-30 06:40] LABS: Anion Gap 4.5 mmol/L (3-11); BUN 16 mg/dL (7-18); CO2 27.5 mmol/L (21.0-32.0); CREATININE 1.1 mg/dL (0.70-1.30); Calcium 8.6 mg/dL (8.5-10.1); Chloride 102 mmol/L (98-107); Estimated GFR 70.44 (mL/min/1.73m2); Glucose 115 mg/dL (74-106); Potassium 4.1 mmol/L (3.5-5.1); Sodium 134 mmol/L (136-145)
[2022-08-30] MEDS: cefTRIAXone 2 GM/50 ML BAG IVPB (08:17)
[2022-08-30] MEDS: Normal Saline 1,000 ML 125 ML IV ×2 (08:18→20:00)
--- NOTE | 2022-08-30 09:45 | INITIAL_ITS ---
Date of service: 08/30/22 Time of Service: 09:46 Care Management Initial Assmt Initial Assessment REASON FOR HOSPITALIZATION:: Delirium PREVIOUS FUNCTIONAL STATUS/SOCIAL/FAMILY SUPPORTS:: Humphrey lives in [place] with his , Shellie. CURRENT FUNCTIONAL STATUS:: Humphrey was lying in bed when CM met with him. He was pleasant in interaction, but was limited in providing information. CM asked additional questions about his recollection of events leading up to his hospitalization. He was hesitant to provide information, but stated I am God, I have been around longer than time, and my time is coming. He stated that his p mariam will be to be taken away, although he did not verbalize where he would go. CM contacted [facility], per MD request, who screened him and are seeking inpatient psychiatric care for his paranoid delusions and psychosis. Referrals were sent to [facility], [facility], and [facility]. CM will continue to follow. ADVANCE DIRECTIVES:: None on file Has patient been provided with info about the portal/API?: Yes Did the patient sign up for the portal?: No CODE STATUS:: Full Code INSURANCE COVERAGE / FINANCIAL ISSUES:: MCR/ BCBS CURRENT HOME/COMMUNITY SERVICES/EQUIPMENT:: None PRIMARY CARE PHYSICIAN:: Vishal Mcbride POTENTIAL DISCHARGE NEEDS:: Evaluations for further needs, follow up appointments. PATIENT/FAMILY EDUCATION NEEDS:: Review discharge instructions and limitations, discussion of self care needs including ask me three. ANTICIPATED BARRIERS TO DISCHARGE:: None identified. TRANSPORTATION:: Via private vehicle by family. PLAN:: Humphrey will continue to be evaluated for his need to have inpatient psychiatric care daily. Referrals are pending at [facility], [facility] and [facility]. He will transport via EMS vs [employer]. He will follow up with his PCP and discharge plan of care. CM will continue to follow. PFSH All Active Problems (Updated 08/29/22 @ 15:56 by Shaan Coulter MD) AMS (altered mental status) (Acute) Insomnia (Acute) Acute delirium (Acute) Medical History Cataract Diastolic murmur Social History Smoking/Tobacco Use Status: Former Tobacco Use Quit Date: 04/09/66 Smoking risk assessment performed?: Yes Alcohol Intake: former Drug use: Never Substance use type: does not use Do you feel safe at home: Yes Do you feel safe in your relationship?: Yes
--- NOTE | 2022-08-30 12:44 | PGE_ITS ---
Date of Service Date of service: 08/30/22 Time of Service: 12:44 Assessment and Plan Assessment and plan (1) Acute delirium: Status: Acute Assessment and plan: Acute delirium with agitation that developed after admission requiring restraints, chemical with IM Geodon, and physical. Transferred to the ICU Continues on precedex drip. Calm and conversant today. He relates that he is God, he will ignite down by the elevator in several days and speaks of people that are cannibals at night. No known psychiatric diagnosis. Mental Health consult. Will given oral Geodon and try to wean off precedex. Subjective Subjective Patient reports: afebrile; denies shortness of breath Interval history since last seen: Pt remains in soft restraints as precaution to protect himself and staff. On precedex drip. Calm. Conversant. ICU nurse manager workers compensation relates her conversation with him that indicates delusions and paranoia. Exam Narrative Exam Narrative: Lying with 4 point soft constraints. Calm. Alert. Oriented to self. Eyes General: appearance normal, both eyes and all related structures Sclera: sclerae normal Resp Effort & Inspection: normal respiratory effort Auscultation: clear to auscultation bilaterally Cardio Rate: regular rate Rhythm: regular rhythm Heart Sounds: S1 normal and S2 normal Neuro General: no focal motor deficits Cranial Nerves: facial strength normal Gait: normal gait Motor: no tremors Extrem General: no pedal edema and no calf tenderness Psych Appearance: grossly normal Affect: blunted Thought Content: delusions Insight: poor Objective Last Vital Signs Temp 37.8 C H 08/30/22 11:36 Pulse 78 08/30/22 11:00 Resp 18 08/30/22 11:00 BP 138/66 08/30/22 09:41 Pulse Ox 94 08/30/22 08:02 Laboratory Results - last 24 hr 08/29/22 08/29/22 08/29/22 12:44 12:44 12:44 WBC 9.11 RBC 4.57 Hgb 13.7 Hct 39.6 L MCV 87 MCH 30.0 MCHC 34.6 RDW 11.4 L Plt Count 273 MPV 10.6 Immature Gran % 0.2 Neutrophils % 91.0 Lymphocytes % 4.3 Monocytes % 4.4 Eosinophils % 0.0 Basophils % 0.1 Nucleated RBC % 0.0 Absolute Neutrophils 8.29 H Absolute Lymphocytes 0.39 L Absolute Monocytes 0.40 Absolute Eosinophils 0.00 Absolute Basophils 0.01 Xanthochromia PT INR Sodium 132 L Potassium 3.6 Chloride 96 L Carbon Dioxide 26.4 Anion Gap 9.6 BUN 13 Creatinine 0.8 Est GFR (CKD-EPI 2020) 92.87 Glucose 150 H Calcium 8.8 Magnesium 1.8 Total Bilirubin 0.6 AST 47 H ALT 34 Alkaline Phosphatase 77 Ammonia < 10 L Troponin I < 50 NT-Pro-B Natriuret Pep 280 Total Protein 7.5 Albumin 4.3 TSH 0.63 Urine Color Urine Clarity Urine pH Ur Specific [place] Urine Protein Urine Ketones Urine Blood Urine Nitrite Urine Bilirubin Urine Urobilinogen Ur Leukocyte Esterase Urine RBC Urine WBC Ur Epithelial Cells Urine Crystals Urine Bacteria Urine Casts Urine Mucus Ur Culture Indicated? Urine Glucose Fluid Source Fluid Color Fluid Clarity Fluid WBC Fld Polynuclear WBCs % Fluid Mononuclear Cell Fluid Other Cells Fluid Glucose CSF Tube Number CSF Color CSF Clarity CSF WBC CSF RBC CSF Diff Comment CSF Glucose CSF Total Protein Urine Opiates Screen Urine Methadone Screen Ur Barbiturates Screen Ur Tricyclics Screen Ur Amphetamines Screen U Benzodiazepines Scrn Urine Cocaine Screen Ur THC Screen Ethyl Alcohol < 3.0 Path Cons Comment 08/29/22 08/29/22 08/29/22 12:44 18:45 18:45 WBC RBC Hgb Hct MCV MCH MCHC RDW Plt Count MPV Immature Gran % Neutrophils % Lymphocytes % Monocytes % Eosinophils % Basophils % Nucleated RBC % Absolute Neutrophils Absolute Lymphocytes Absolute Monocytes Absolute Eosinophils Absolute Basophils Xanthochromia PT 10.4 INR 1.0 Sodium Potassium Chloride Carbon Dioxide Anion Gap BUN Creatinine Est GFR (CKD-EPI 2020) Glucose Calcium Magnesium Total Bilirubin AST ALT Alkaline Phosphatase Ammonia Troponin I NT-Pro-B Natriuret Pep Total Protein Albumin TSH Urine Color Yellow Urine Clarity Clear Urine pH 7.0 Ur Specific [place] 1.015 Urine Protein 30 H Urine Ketones 80 H Urine Blood Negative Urine Nitrite Negative Urine Bilirubin Negative Urine Urobilinogen 0.2 Ur Leukocyte Esterase Negative Urine RBC 0-2 Urine WBC 0-2 Ur Epithelial Cells Rare Urine Crystals Negative Urine Bacteria Negative Urine Casts Negative Urine Mucus Negative Ur Culture Indicated? No Urine Glucose Negative Fluid Source Fluid Color Fluid Clarity Fluid WBC Fld Polynuclear WBCs % Fluid Mononuclear Cell Fluid Other Cells Fluid Glucose CSF Tube Number CSF Color CSF Clarity CSF WBC CSF RBC CSF Diff Comment CSF Glucose CSF Total Protein Urine Opiates Screen Negative Urine Methadone Screen Negative Ur Barbiturates Screen Negative Ur Tricyclics Screen Negative Ur Amphetamines Screen Negative U Benzodiazepines Scrn Positive A Urine Cocaine Screen Negative Ur THC Screen Negative Ethyl Alcohol Path Cons Comment 08/29/22 08/29/22 08/29/22 19:00 19:00 19:00 WBC RBC Hgb Hct MCV MCH MCHC RDW Plt Count MPV Immature Gran % Neutrophils % Lymphocytes % Monocytes % Eosinophils % Basophils % Nucleated RBC % Absolute Neutrophils Absolute Lymphocytes Absolute Monocytes Absolute Eosinophils Absolute Basophils Xanthochromia Absent PT INR Sodium Potassium Chloride Carbon Dioxide Anion Gap BUN Creatinine Est GFR (CKD-EPI 2020) Glucose Calcium Magnesium Total Bilirubin AST ALT Alkaline Phosphatase Ammonia Troponin I NT-Pro-B Natriuret Pep Total Protein Albumin TSH Urine Color Urine Clarity Urine pH Ur Specific [place] Urine Protein Urine Ketones Urine Blood Urine Nitrite Urine Bilirubin Urine Urobilinogen Ur Leukocyte Esterase Urine RBC Urine WBC Ur Epithelial Cells Urine Crystals Urine Bacteria Urine Casts Urine Mucus Ur Culture Indicated? Urine Glucose Fluid Source Cancelled Fluid Color Cancelled Fluid Clarity Cancelled Fluid WBC Cancelled Fld Polynuclear WBCs % Cancelled Fluid Mononuclear Cell Cancelled Fluid Other Cells Cancelled Fluid Glucose CSF Tube Number 4 CSF Color Colorless CSF Clarity Clear CSF WBC 1 CSF RBC 1 CSF Diff Comment Not Applicable CSF Glucose 86 H CSF Total Protein 46 H Urine Opiates Screen Urine Methadone Screen Ur Barbiturates Screen Ur Tricyclics Screen Ur Amphetamines Screen U Benzodiazepines Scrn Urine Cocaine Screen Ur THC Screen Ethyl Alcohol Path Cons Comment Cancelled 08/29/22 08/30/22 08/30/22 19:25 06:10 06:10 WBC 8.81 RBC 4.07 L Hgb 12.5 L Hct 35.9 L MCV 88 MCH 30.7 MCHC 34.8 RDW 11.6 L Plt Count 257 MPV 10.6 Immature Gran % 0.2 Neutrophils % 81.7 Lymphocytes % 8.5 Monocytes % 9.5 Eosinophils % 0.0 Basophils % 0.1 Nucleated RBC % 0.0 Absolute Neutrophils 7.19 H Absolute Lymphocytes 0.75 L Absolute Monocytes 0.84 H Absolute Eosinophils 0.00 Absolute Basophils 0.01 Xanthochromia PT INR Sodium 134 L Potassium 4.1 Chloride 102 Carbon Dioxide 27.5 Anion Gap 4.5 BUN 16 Creatinine 1.1 Est GFR (CKD-EPI 2020) 70.44 Glucose 115 H Calcium 8.6 Magnesium Total Bilirubin AST ALT Alkaline Phosphatase Ammonia Troponin I NT-Pro-B Natriuret Pep Total Protein Albumin TSH Urine Color Urine Clarity Urine pH Ur Specific [place] Urine Protein Urine Ketones Urine Blood Urine Nitrite Urine Bilirubin Urine Urobilinogen Ur Leukocyte Esterase Urine RBC Urine WBC Ur Epithelial Cells Urine Crystals Urine Bacteria Urine Casts Urine Mucus Ur Culture Indicated? Urine Glucose Fluid Source Fluid Color Fluid Clarity Fluid WBC Fld Polynuclear WBCs % Fluid Mononuclear Cell Fluid Other Cells Fluid Glucose Cancelled CSF Tube Number CSF Color CSF Clarity CSF WBC CSF RBC CSF Diff Comment CSF Glucose CSF Total Protein Urine Opiates Screen Urine Methadone Screen Ur Barbiturates Screen Ur Tricyclics Screen Ur Amphetamines Screen U Benzodiazepines Scrn Urine Cocaine Screen Ur THC Screen Ethyl Alcohol Path Cons Comment Time Spent with Patient Time Spent with Patient: 25-34 minutes Time was spent: preparing to see the patient(eg.review tests), obtaining and/or reviewing separately otained hiistory, ordering medications,tests, procedures, referring, communicating with other health medicare contact specialist, indepentently interpreting results and care coordination
--- NOTE | 2022-08-30 13:06 | NUR.NOTE ---
08/30/22: 1215: patient awake lying in bed, with four point restraints on. Asked if he was hungry. Patient declined his lunch stating I am not hungry then patient asked me are we having lift off today? when patient was asked to clarify his question he wanted to know when they are taking me away? referring to the [facility] crew that had arrived & left with a patient in the adjacent room. Explained to the patient that he would be remaining in his room and he was accepting of this. Patient stated twice that he was god and that he would be in 2-3 days because they are going to kill me. 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 He did know know who sent them and his customers told him he was God. The patient repeated he was god several times. The patient relayed that he has been very worried about the state of the world lately and people are making plans. He could not clarify what that meant but the patient went on to say that they have been eating humans, it happens at night. They all me about t the next day in my shop. One man asked me if I ever ate liver with skin on it. I didn't know what he was talking about I told him I ate liver now and then and then the elan asked me who it was? They are all doing it, making plans and being cannibals My is too. I don't know why While assessing him the patient was able to relay that he did not remember being sick recently or if he had a tick bite. He relayed that someone asked him the same questionsyesterday. He could not say why he was in the hospital and thought it had something to do with him being God and that he was going to in about 3-4 days. the patient remained calm during the conversation. 1250: Information was relayed to Dr. Nicolas. 1300: Mental health workers Clementina & Jose in room to talk with patient.
--- NOTE | 2022-08-30 13:28 | NUR.NOTE ---
Nursing Note: Mental Health services in from from approximately 1305 to 1327.
--- NOTE | 2022-08-30 15:51 | PDOC.MHCN ---
Date of service: 08/30/22 Time of Service: 12:39 PHQ-9 Over the last 2 weeks, how often have you been bothered by any of the following problems? 1. Little interest or pleasure in doing things: several days 2. Feeling down, depressed, or hopeless: several days 3. Trouble falling or staying asleep, or sleeping too much: more than half the days 4. Feeling tired or having little energy: nearly every day 5. Poor appetite or overeating: several days 6. Feeling bad about yourself - or that you are a failure or have let yourself and your family down: several days 7. Trouble concentrating on things, such as reading the newspaper or watching television: not at all 8. Moving or speaking so slowly that other people could have noticed? - Or the opposite - being so fidgety or restless that you have been moving around a lot more than usual: more than half the days 9. Thoughts that you would be better off or of hurting yourself in some way: not at all Total score: 11 Source: Developed by Drs. Sudheer Cruz, Tete Billings, Trent Rodriguez and colleagues, with an educational kelby from [employer]. Suicide Severity Rate CSSRS Have you wished you were or wished you could go to sleep and not wake up?: No Have you actually had any thoughts of killing yourself?: No CSSRS2 Have you been thinking about how you might do this?: No Screening Score Total Score: 0 Screening: Negative Mental Health Emergency Note Release [facility] release signed:: No Reason for Visit the client presented to the ED on 08/29 with altered mental status In the last 2 weeks has the pt presented for ES prior to today?: No Client Information Client is: Adult Outpatient Well Housed: Yes Non Suicidal Self Injury Current: No History: No Safety Risk/Harm to Self or Others Current Ideation to Harm Self or Others: No Risk: Does risk to harm exist?: No Duty to warn indicated: No Asssessment/Mental Status Appearance: Disheveled Attitude: Cooperative Behavior: Repetitive movements Speech: Soft and Hesitant Affect: Blunted and Cogruent with mood Mood: Euphoric and Expansive Thought process: Loose associations and Flight of ideas Hallucinations: No Delusions: yes, Persectory/Paranoid and Bizarre Attention: Wandering and Inattention Perception: Derealization Orientation: Fully orientated Memory: Intact Insight: Poor Judgement: Poor Neurovegetative Symptoms Sleep: Decrease Appetitie: Decrease Interests: No change Energy: Decrease Libido: Not applicable Substance Use: Do you use nicotine?: No Have you used substances in the last 7 days?: No Additional Issues: Assaultive/Threatening Behavior: No Medical Concerns: No Client engaged in active self harm w/weapon: No Threatening to run away: No Child reported abuse/neglect: No Voluntarily presenting for services: Yes Domestic violence is a concern: No Extreme Psychosis or extreme behavior is present: Yes Impression The client presented in the ED on 08/29 with altered mental status. The client reports delusional statements Plan/Disposition Recommended Disposition: Hospitalization ([facility], [facility], [facility], [facility]) facilities contacted. Plan: The Client will remain at [facility] until volunatry inpatient hospitalization can be secured Person reported agreement to plan: Yes Reports/communication Outcome discussed with: PCP/Personnel
--- NOTE | 2022-08-30 15:58 | CMSP_ITS ---
Date of service: 08/30/22 Time of Service: 15:58 Care Management Safety Plan Status Status: Voluntary Reason for Wait Reason for Wait: Inpatient Admission Safety Plan Safety Plan: VOLUNTARY FOR INPATIENT PSYCHIATRIC STABILIZATION.? Patient is appropriate in all interactions since arriving at [facility]; Pt has demonstrated appropriate coping and communication skills, has articulated his or her needs and concerns and is fully engaged during staff interactions. Safety plan has been established with patient, and care team, to adhere to patient goals, identify restrictions based on behavioral status, address nutrition, and determine allowed personal belongings, tools for hygiene and personal care. Determine level of activity including ambulation, level of supervision, visitors, and determine privileges based on behaviors and level of engagement by pt. SAFETY PLAN: 1. Will remain on suicide precautions. In Paper Clothes or hospital scrubs. 2. Will remain in room under direct supervision of one-on-one staff at all times provided by [employer]; EMILIA, COMPUTER TECHNICAL SPECIALIST furniture restorer. 3. May have paper cups, plates, finger foods as well as a cardboard spoon with which to eat meals. 4. Follow [facility] Management of the Admitted Behavioral Health Patient policy. 5. Comfort bath system only, shower permitted with escort at RN discretion. 6. No personal belongings-soft items permitted at RN discretion. 7. Visitors- family, at RN discretion. 8. Activities: soft cart items approved per RN discretion. 9.? Bathroom privileges with escort in the ED, available in room without limitation on M/S. 10. Phone: contact limited to family at this time, via cordless phone at RN discretion. 11. Due to VOLUNTARY status, if patient wishes to leave [facility], staff will contact [facility] Crisis Screener ([phone]) and On-Call Financial Institution President ([phone]) as soon as possible. In the event of elopement, notify [place] [employer] ([phone]). Patient is currently voluntarily at [facility] and seeking inpatient admission when a bed becomes available. [facility] Frontline Systems Trainer will continue seeking placement. Please contact the [employer] Financial Institution President ([phone]) and [facility] Systems Trainer ([phone]) for any needed changes in the Safety Plan. Safety plan has been provided to interdepartmental care team.
[2022-08-30] MEDS: Ziprasidone 20 MG CAP PO ×2 (16:17→21:49)
[2022-08-30] MEDS: Normal Saline 250 ML 500 ML IV (16:19)
[2022-08-30] MEDS: Melatonin 3 MG TAB PO (21:49)
[2022-08-30] MEDS: Acetaminophen 325 MG TAB 650 MG PO (21:49)
[2022-08-30 23:30] LABS: HSV 1 DNA Result Negative (Negative); HSV 2 DNA Result Negative (Negative)
[2022-08-30] MEDS: risperiDONE 1 MG TAB 2 MG PO (23:50)
[2022-08-31] VITALS (59 sets, daily range): BP systolic 106–183; BP diastolic 48–74; PULSE 58–103; RESP 7–25; TEMP 37.1–38.1; O2SAT 83–100
[2022-08-31] MEDS: Normal Saline 1,000 ML 125 ML IV (04:05)
[2022-08-31] MEDS: dexmedeTOMidine IN 0.9 % NACL 400 MCG/100 ML BTL 14.515 MCG IV (06:21)
[2022-08-31] MEDS: Ziprasidone 20 MG CAP PO ×2 (07:56→20:45)
[2022-08-31 08:12] LABS: Lactate 0.7 mmol/L (0.6-1.4)
[2022-08-31 08:13] LABS: Abs Immature Grans 0.04 10^3/uL (0.0-0.06); Absolute Basophil Count 0.02 10^3/uL (0.0-0.2); Absolute Eosinophil Count 0.01 10^3/uL (0.0-0.7); Absolute Lymphocyte Count 0.87 10^3/uL (1.2-3.4); Absolute Monocyte Count 0.56 10^3/uL (0.1-0.8); Absolute Neutrophil Count 6.13 10^3/uL (1.2-6.7); Basophils % 0.3; Eosinophils % 0.1; HCT 35.9 % (40.0-50.0); HGB 11.9 g/dL (13.5-17.5); Immature Grans % 0.5; Lymphocytes % 11.4; MCH 29.9 pg (27.0-33.0); MCHC 33.1 % (32.0-36.0); MCV 90 fL (80-95); MPV 10.7 fL (8.0-11.0); Monocytes % 7.3; Neutrophils % 80.4; Platelet Count 226 10^3/uL (130-400); RBC 3.98 10^6/uL (4.36-5.78); RDW 11.9 % (11.8-14.1); RDW-SD 38.9 fL; WBC 7.63 10^3/uL (4.4-10.8)
[2022-08-31 08:26] LABS: Anion Gap 8.2 mmol/L (3-11); BUN 23 mg/dL (7-18); C-Reactive Protein 1.58 mg/dL (0.0-0.3); CO2 24.8 mmol/L (21.0-32.0); Calcium 8.4 mg/dL (8.5-10.1); Chloride 111 mmol/L (98-107); Estimated GFR 78.98 (mL/min/1.73m2); Glucose 91 mg/dL (74-106); Magnesium 2.3 mg/dL (1.8-2.4); Potassium 3.9 mmol/L (3.5-5.1); Sodium 144 mmol/L (136-145)
--- NOTE | 2022-08-31 09:00 | RT.EKG_ITS ---
APPROVED REPORT Exam: Resting ECG Reason for Exam: ?on license of [facility] Patient Location: I HR:75 bpm ECG Measurements Heart Rate 75 AXIS MN 163 P 50 QRSd 97 QRS -14 QT 362 T 2 QTc 405 Conclusion Sinus rhythm...normal P axis, V-rate 50- 99 RSR' in V1 or V2, probably normal variant...small R' only Artifact in lead(s) V4 and baseline wander in lead(s) V3,V4
[2022-08-31 09:05] LABS: Procalcitonin < 0.1 ng/mL
[2022-08-31 09:31] LABS: Source Nasal/Nares
[2022-08-31 09:41] LABS: Lab Add On Test DONE
[2022-08-31 10:15] LABS: Creatine Kinase 538 U/L (39-308)
[2022-08-31] MEDS: cloNIDine 0.1 MG TAB PO ×2 (10:24→20:45)
[2022-08-31 10:39] LABS: COVID-19 PCR Negative (Negative)
--- NOTE | 2022-08-31 14:00 | PGE_ITS ---
Date of Service Date of service: 08/31/22 Time of Service: 14:00 Assessment and Plan Assessment and plan (1) AMS (altered mental status): Status: Acute Assessment and plan: Delirium vs psychosis/kacy. Appears to be improving, however, still expressing paranoid ideation. Continue geodon. Will schedule zyprexa at night; started clonidine in an attempt to d/c precedex gtt. Mental health on board. For now, the paln is for voluntary placement into a psychiatric facility. (2) Insomnia: Status: Acute Assessment and plan: Could be the cause of or part of #1. As above (3) Normocytic anemia: Status: Acute Assessment and plan: Check anemia studies. (4) Hypertension: Status: Chronic Assessment and plan: Monitor with addition of clonidine. (5) Fever: Status: Acute Assessment and plan: Procalcitonin negative. COVID negative. UA negative> LP negative. CXR negative on 08/29/22. Blood cultures are not yet back. No role for empiric abx. Suspect this is due to the use of precedex. (6) DVT prophylaxis: Status: Acute Assessment and plan: Sc enoxaparin (7) Discharge planning issues: Status: Acute Assessment and plan: Full code Mental health consulted. Keep in ICU. Anticipate discharge for psychiatric stabilization on voluntary basis. Total Critical Care Time 40 minutes. Subjective Subjective Interval history since last seen: Mr Poole has been cooperative. He denies pain, headache, dizziness, chest discomfort, shortness of breath, nausea. He has not been combative. He did endorse to mental health that he felt sanjuana this family (, son) were trying to kill him. He denies SI/HI. He denies visual or audio hallucinations. Per , who spoke with care management, the patient had a similar episode about 10 years ago treated at [facility], [facility]. Precedex gtt was in process of being weaned off this morning. Exam Narrative Exam Narrative: General: Calm, cooperative elderly male who is A&Ox3, NAD, laying comfortably in bed; at the time, still had restraints on. HEENT: EOMI, MMM Heart: RRR, no m/r/g Lungs: CTAB Abdomen: soft, nontender, nondistended Extremities: no edema BLEs Objective Last Vital Signs Temp 37.1 C 08/31/22 11:00 Pulse 64 08/31/22 12:01 Resp 20 08/31/22 13:30 BP 137/64 08/31/22 12:01 Pulse Ox 84 L 08/31/22 13:30 Laboratory Results - last 24 hr 08/29/22 08/31/22 08/31/22 19:00 08:00 08:00 WBC RBC Hgb Hct MCV MCH MCHC RDW Plt Count MPV Immature Gran % Neutrophils % Lymphocytes % Monocytes % Eosinophils % Basophils % Nucleated RBC % Absolute Neutrophils Absolute Lymphocytes Absolute Monocytes Absolute Eosinophils Absolute Basophils VBG Lactate 0.7 Sodium 144 D Potassium 3.9 Chloride 111 H Carbon Dioxide 24.8 Anion Gap 8.2 BUN 23 H Creatinine 1.0 Est GFR (CKD-EPI 2020) 78.98 Glucose 91 Calcium 8.4 L Magnesium 2.3 Creatine Kinase C-Reactive Protein 1.58 H Procalcitonin < 0.1 COVID-19 Source SARS-CoV-2 (PCR) HSV Source Description Not Applicable HSV I DNA PCR Negative HSV II DNA PCR Negative Add-On Test Request 08/31/22 08/31/22 08/31/22 08:00 08:00 08:00 WBC 7.63 RBC 3.98 L Hgb 11.9 L Hct 35.9 L MCV 90 MCH 29.9 MCHC 33.1 RDW 11.9 Plt Count 226 MPV 10.7 Immature Gran % 0.5 Neutrophils % 80.4 Lymphocytes % 11.4 Monocytes % 7.3 Eosinophils % 0.1 Basophils % 0.3 Nucleated RBC % 0.0 Absolute Neutrophils 6.13 Absolute Lymphocytes 0.87 L Absolute Monocytes 0.56 Absolute Eosinophils 0.01 Absolute Basophils 0.02 VBG Lactate Sodium Potassium Chloride Carbon Dioxide Anion Gap BUN Creatinine Est GFR (CKD-EPI 2020) Glucose Calcium Magnesium Creatine Kinase 538 H C-Reactive Protein Procalcitonin COVID-19 Source SARS-CoV-2 (PCR) HSV Source Description HSV I DNA PCR HSV II DNA PCR Add-On Test Request DONE 08/31/22 09:30 WBC RBC Hgb Hct MCV MCH MCHC RDW Plt Count MPV Immature Gran % Neutrophils % Lymphocytes % Monocytes % Eosinophils % Basophils % Nucleated RBC % Absolute Neutrophils Absolute Lymphocytes Absolute Monocytes Absolute Eosinophils Absolute Basophils VBG Lactate Sodium Potassium Chloride Carbon Dioxide Anion Gap BUN Creatinine Est GFR (CKD-EPI 2020) Glucose Calcium Magnesium Creatine Kinase C-Reactive Protein Procalcitonin COVID-19 Source Nasal/Nares SARS-CoV-2 (PCR) Negative HSV Source Description HSV I DNA PCR HSV II DNA PCR Add-On Test Request Multi-Disciplinary Checklist Lines/Tubes CENTRAL LINE: no ARTERIAL LINE: no SILVA: no ENDOTRACHEAL TUBE: no ICU Maintenance GLUCOSE 140-180mg/dL: no, Reason/Intervention: not diabetic NUTRITION AT GOAL: yes PRESSURE ULCER: no RESTRAINTS: no ANTIBIOTICS(if yes, consider Stewardship): No Social Issues FAMILY UPDATED: yes PT/OT: no, Reason/Intervention: Not yet clinically appropriate GOALS/DISPOSITION/EVAPORATIVE COOLER INSTALLER: yes CODE STATUS: Full Prophylaxis DVT PROPHYLAXIS: yes GI PROPHYLAXIS: no Time Spent with Patient Time Spent with Patient: 35-49 minutes Time was spent: preparing to see the patient(eg.review tests), obtaining and/or reviewing separately otained hiistory, ordering medications,tests, procedures, referring, communicating with other health care transition mgr, indepentently interpreting results, counseling the patient and care coordination
--- NOTE | 2022-08-31 15:15 | PDOC.CMSAFE ---
Date of service: 08/31/22 Time of Service: 15:15 Care Management Safety Plan Status Status: Interim Reason for Wait Reason for Wait: Medical Clearance Safety Plan Safety Plan: VOLUNTARY FOR INPATIENT PSYCHIATRIC STABILIZATION.? Patient is appropriate in all interactions since arriving at [facility]; Pt has demonstrated appropriate coping and communication skills, has articulated his or her needs and concerns and is fully engaged during staff interactions. Safety plan has been established with patient, and care team, to adhere to patient goals, identify restrictions based on behavioral status, address nutrition, and determine allowed personal belongings, tools for hygiene and personal care. Determine level of activity including ambulation, level of supervision, visitors, and determine privileges based on behaviors and level of engagement by pt. SAFETY PLAN: 1. Will remain on suicide precautions. In Paper Clothes or hospital scrubs. 2. Will remain in room under direct supervision of one-on-one staff at all times provided by [employer]; EMILIA, FINANCIAL DATA ANALYST railroad wheels and axle inspector. 3. May have paper cups, plates, finger foods as well as a cardboard spoon with which to eat meals. 4. Follow [facility] Management of the Admitted Behavioral Health Patient policy. 5. Comfort bath system only, shower permitted with escort at RN discretion. 6. No personal belongings-soft items permitted at RN discretion. 7. Visitors- none at this time, at RN discretion.? 8. Activities: soft cart items approved per RN discretion. 9.? Bathroom privileges with escort in the ED, available in room without limitation on M/S. 10. Phone: contact limited to legal at this time, via cordless phone at RN discretion. 11. Due to VOLUNTARY status, if patient wishes to leave [facility], staff will contact [facility] Crisis Screener ([phone]) and On-Call Manganese Heater ([phone]) as soon as possible. In the event of elopement, notify [facility] Police ([phone]). Patient is currently voluntarily at [facility] and seeking inpatient admission when a bed becomes available. [facility] Frontline Application Services Manager will continue seeking placement. Please contact the Curriculum Coach Manganese Heater ([phone]) and [facility] Application Services Manager ([phone]) for any needed changes in the Safety Plan. Safety plan has been provided to interdepartmental care team.
--- NOTE | 2022-08-31 15:26 | PDOC.CMPRO ---
Date of service: 08/31/22 Time of Service: 15:26 Care Management Progress Note Progress Note Text Progress Note Text: S/O: Jones is being closely monitored in the ICU. He was pleasant and calm when CM met with him briefly today. [facility] met with him and he continues to express delusional thoughts about his and son trying to kill him. He also stated that he is the President. CM talked at length with Mariam, Jones's , who stated that this is not normal for Jones, and that he is a gentle soul. She described a similar episode about ten years ago, which was less severe than this occurrence, when he went to [facility] and spent five days in the ICU before returning home. CM discussed discharge considerations with Mariam, including the possibility of Jones going to inpatient psychiatric treatment, which she is agreeable to. She was understanding of the process and was helpful in providing additional information about Jones and his past experiences, which CM shared with the provider. Referrals are pending at [facility], [facility], [facility]. CM will continue to follow. A: Jones is a 76 year old male admitted to [facility] on 08/30/22 with delirium. P: ?Humphrey will continue to be evaluated for his need to have inpatient psychiatric care daily. Referrals are pending at [facility], [facility], [facility]. He will transport via EMS vs Employment Attorney. He will follow up with his PCP and discharge plan of care. CM will continue to follow. Status Status: Interim Reason for Wait: Medical Clearance
--- NOTE | 2022-08-31 16:33 | CHAPLAIN ---
I introduced myself to Jones, explained my role and offered support. He was quiet and thanked me for stopping in to see him.
[2022-08-31] MEDS: Heparin 5,000 UNITS/ML VIAL 5000 UNITS SC (17:50)
[2022-08-31] MEDS: Acetaminophen 325 MG TAB 650 MG PO (17:50)
[2022-08-31] MEDS: Melatonin 3 MG TAB PO (20:45)
[2022-08-31] MEDS: OLANZapine 5 MG TAB PO (21:03)
[2022-09-01] VITALS (52 sets, daily range): BP systolic 97–169; BP diastolic 39–83; PULSE 63–100; RESP 10–27; TEMP 36.7–37.7; O2SAT 9–99
[2022-09-01] MEDS: Heparin 5,000 UNITS/ML VIAL 5000 UNITS SC ×2 (05:55→19:10)
[2022-09-01 06:49] LABS: Iron 66 ug/dL (65-175); Total Iron Binding Capacity 215 ug/dL (250-450); Transferrin Sat 31 % (20-55)
[2022-09-01 07:16] LABS: Ferritin 259 ng/mL (26-388); Folate > 20.0 ng/mL (8.6-20.0); Vitamin B12 1239 pg/mL (193-986)
[2022-09-01] MEDS: Ziprasidone 20 MG CAP PO ×2 (07:50→19:10)
[2022-09-01] MEDS: cloNIDine 0.1 MG TAB PO ×2 (07:50→19:10)
[2022-09-01 08:32] LABS: Abs Immature Grans 0.01 10^3/uL (0.0-0.06); Absolute Basophil Count 0.03 10^3/uL (0.0-0.2); Absolute Eosinophil Count 0.03 10^3/uL (0.0-0.7); Absolute Lymphocyte Count 1.11 10^3/uL (1.2-3.4); Absolute Monocyte Count 0.43 10^3/uL (0.1-0.8); Absolute Neutrophil Count 3.76 10^3/uL (1.2-6.7); Basophils % 0.6; Eosinophils % 0.6; HCT 36.4 % (40.0-50.0); HGB 12.1 g/dL (13.5-17.5); Immature Grans % 0.2; Lymphocytes % 20.7; MCHC 33.2 % (32.0-36.0); MCV 90 fL (80-95); MPV 10.6 fL (8.0-11.0); Neutrophils % 69.9; Platelet Count 234 10^3/uL (130-400); RBC 4.03 10^6/uL (4.36-5.78); RDW 11.8 % (11.8-14.1); RDW-SD 38.8 fL; WBC 5.37 10^3/uL (4.4-10.8)
[2022-09-01 08:48] LABS: Anion Gap 7.1 mmol/L (3-11); BUN 20 mg/dL (7-18); CO2 29.9 mmol/L (21.0-32.0); CREATININE 0.9 mg/dL (0.70-1.30); Calcium 8.5 mg/dL (8.5-10.1); Chloride 108 mmol/L (98-107); Creatine Kinase 416 U/L (39-308); Estimated GFR 89.62 (mL/min/1.73m2); Glucose 111 mg/dL (74-106); Potassium 3.6 mmol/L (3.5-5.1); Sodium 145 mmol/L (136-145); Troponin I < 50 ng/L (<or=60)
--- NOTE | 2022-09-01 10:10 | NUR.NOTE ---
Patient is sleeping.Nursing Note:
--- NOTE | 2022-09-01 10:45 | NUR.NOTE ---
Mental health counselor meets with patient.Nursing Note:
--- NOTE | 2022-09-01 11:00 | NUR.NOTE ---
Mental health counselor concludes her meeting with patient.Nursing Note:
--- NOTE | 2022-09-01 11:20 | CMSP_ITS ---
Date of service: 09/01/22 Time of Service: 11:20 Care Management Safety Plan Status Status: Voluntary Safety Plan Safety Plan: Medically cleared 08/31@[address] Teague. [facility]: Berkley notes drastic improvement in patient presentation. Updated clinical information provided to LIZETTE. MEDICAL STAFF SERVICES MANAGER notified that is visiting; added visitors to safety plan at patient/RN discretion. VOLUNTARY FOR INPATIENT PSYCHIATRIC STABILIZATION.? SAFETY PLAN: 1. Will remain on suicide precautions; in paper clothes or hospital scrubs. 2. Will remain in room under direct supervision of one-on-one staff at all times provided by [employer]; EMILIA, CABLE TECHNICIAN plastic molding operator. 3. May have paper cups, plates, finger foods as well as a cardboard spoon with which to eat meals. 4. Follow [facility] Management of the Admitted Behavioral Health Patient policy. 5. Comfort bath system, shower permitted with escort at RN discretion. 6. Personal belongings-soft items permitted at RN discretion. 7. Visitors- per patient preference, at RN discretion.? 8. Activities: soft cart items approved per RN discretion. 9.?Bathroom privileges available in room without limitation. 10. Phone: contact limited to legal at this time, via cordless phone at RN disc retion. 11. Due to VOLUNTARY status, if patient wishes to leave [facility], staff will contact [facility] Crisis Screener ([phone]) and On-Call Livestock Slaughterer ([phone]) as soon as possible. In the event of elopement, notify [facility] Police ([phone]). Patient is currently voluntarily at [facility] and seeking inpatient admission when a bed becomes available. [facility] Frontline Pump Installer will continue seeking placement. Please contact the Amplifier Mechanic Livestock Slaughterer ([phone]) and [facility] Pump Installer ([phone]) for any needed changes in the Safety Plan. Safety plan has been provided to interdepartmental care team.
--- NOTE | 2022-09-01 11:20 | PDOC.CMSAFE ---
Date of service: 09/01/22 Time of Service: 11:20 Care Management Safety Plan Status Status: Voluntary Safety Plan Safety Plan: Medically cleared 08/31@[address] Teague. [facility]: Berkley notes drastic improvement in patient presentation. Updated clinical information provided to LIZETTE. MACHINE SAND MIXER notified that is visiting; added visitors to safety plan at patient/RN discretion. VOLUNTARY FOR INPATIENT PSYCHIATRIC STABILIZATION.? SAFETY PLAN: 1. Will remain on suicide precautions; in paper clothes or hospital scrubs. 2. Will remain in room under direct supervision of one-on-one staff at all times provided by [employer]; EMILIA, BEAN WEIGHER janitor. 3. May have paper cups, plates, finger foods as well as a cardboard spoon with which to eat meals. 4. Follow [facility] Management of the Admitted Behavioral Health Patient policy. 5. Comfort bath system, shower permitted with escort at RN discretion. 6. Personal belongings-soft items permitted at RN discretion. 7. Visitors- per patient preference, at RN discretion.? 8. Activities: soft cart items approved per RN discretion. 9.?Bathroom privileges available in room without limitation. 10. Phone: contact limited to legal at this time, via cordless phone at RN discretion. 11. Due to VOLUNTARY status, if patient wishes to leave [facility], staff will contact [facility] Crisis Screener ([phone]) and On-Call Air Intercept Controller Supervisor ([phone]) as soon as possible. In the event of elopement, notify [facility] Police ([phone]). Patient is currently voluntarily at [facility] and seeking inpatient admission when a bed becomes available. [facility] Frontline Slab Conditioner Supervisor will continue seeking placement. Please contact the Clinical Pharmacologist Air Intercept Controller Supervisor ([phone]) and [facility] Slab Conditioner Supervisor ([phone]) for any needed changes in the Safety Plan. Safety plan has been provided to interdepartmental care team.
--- NOTE | 2022-09-01 13:51 | PGE_ITS ---
Date of Service Date of service: 09/01/22 Time of Service: 10:30 Assessment and Plan Assessment and plan (1) AMS (altered mental status): Status: Acute Assessment and plan: Delirium vs psychosis/kacy. Doing better. Off of precedex. Continue geodon, zyprexa, clonidine. Voluntary placement to a psychiatric facility pending. He is medically cleared. (2) Insomnia: Status: Acute Assessment and plan: Could be the cause of or part of #1. As above (3) Normocytic anemia: Status: Acute Assessment and plan: No evidenceo of iron, b12, or folate deficiency. Stable. No bleeding. F/u as outpatient. (4) Hypertension: Status: Chronic Assessment and plan: Monitor with addition of clonidine. (5) Fever: Status: Resolved Assessment and plan: Procalcitonin negative. COVID negative. UA negative> LP negative. CXR negative on 08/29/22. Blood cultures are not yet back. No role for empiric abx. Suspect this is due to the use of precedex. (6) DVT prophylaxis: Status: Acute Assessment and plan: Sc enoxaparin (7) Discharge planning issues: Status: Acute Assessment and plan: Full code Mental health consulted.Anticipate discharge for psychiatric stabilization on voluntary basis. Keep in ICU while in house. Total Critical Care Time 30 minutes. Subjective Subjective Interval history since last seen: Jones was startled when I came in - he was napping. He states he slept well last night and can't figure out why he fell asleep like that again during the day. We discussed how he had quite a sleep debt and some of the medications he was started on could make him sleepy. He has been calm and cooperative. Denies dizziness, chest pain, shortness of breath, nausea. Nothing hurts. T max today so far is 37.7. Per Dr Mcmullen, fevers are common for patient on precedex therapy. Precedex was turned off yesterday afternoon and remains off. Exam Narrative Exam Narrative: General: elderly male who is asleep, startled when I wake him up, A&Ox3, NAD, laying comfortably in bed, cooperative, calm, not obviously hallucinating, not obviously paranoid. HEENT: EOMI, MMM Heart: RRR, no m/r/g Lungs: CTAB Abdomen: soft, nontender, nondistended Extremities: no edema BLEs Objective Last Vital Signs Temp 37.5 C 09/01/22 11:15 Pulse 67 09/01/22 11:43 Resp 18 09/01/22 13:00 BP 118/50 L 09/01/22 11:43 Pulse Ox 98 09/01/22 13:34 Laboratory Results - last 24 hr 09/01/22 09/01/22 09/01/22 05:20 05:20 08:23 WBC RBC Hgb Hct MCV MCH MCHC RDW Plt Count MPV Immature Gran % Neutrophils % Lymphocytes % Monocytes % Eosinophils % Basophils % Nucleated RBC % Absolute Neutrophils Absolute Lymphocytes Absolute Monocytes Absolute Eosinophils Absolute Basophils Sodium 145 Potassium 3.6 Chloride 108 H Carbon Dioxide 29.9 Anion Gap 7.1 BUN 20 H Creatinine 0.9 Est GFR (CKD-EPI 2020) 89.62 Glucose 111 H Calcium 8.5 Iron 66 TIBC 215 L Transferrin % Sat 31 Ferritin 259 Creatine Kinase 416 H Troponin I < 50 Vitamin B12 1239 H Folate > 20.0 H 09/01/22 08:23 WBC 5.37 RBC 4.03 L Hgb 12.1 L Hct 36.4 L MCV 90 MCH 30.0 MCHC 33.2 RDW 11.8 Plt Count 234 MPV 10.6 Immature Gran % 0.2 Neutrophils % 69.9 Lymphocytes % 20.7 Monocytes % 8.0 Eosinophils % 0.6 Basophils % 0.6 Nucleated RBC % 0.0 Absolute Neutrophils 3.76 Absolute Lymphocytes 1.11 L Absolute Monocytes 0.43 Absolute Eosinophils 0.03 Absolute Basophils 0.03 Sodium Potassium Chloride Carbon Dioxide Anion Gap BUN Creatinine Est GFR (CKD-EPI 2020) Glucose Calcium Iron TIBC Transferrin % Sat Ferritin Creatine Kinase Troponin I Vitamin B12 Folate Time Spent with Patient Time Spent with Patient: 25-34 minutes Time was spent: preparing to see the patient(eg.review tests), obtaining and/or reviewing separately otained hiistory, ordering medications,tests, procedures, referring, communicating with other health career development associate, indepentently interpreting results, counseling the patient and care coordination
--- NOTE | 2022-09-01 14:30 | NUR.NOTE ---
visits . Meeting is going well.Nursing Note:
--- NOTE | 2022-09-01 14:44 | PDOC.MHPN2 ---
Date of service: 09/01/22 Time of Service: 14:44 PHQ-9 Over the last 2 weeks, how often have you been bothered by any of the following problems? 1. Little interest or pleasure in doing things: several days 2. Feeling down, depressed, or hopeless: several days 3. Trouble falling or staying asleep, or sleeping too much: more than half the days 4. Feeling tired or having little energy: nearly every day 5. Poor appetite or overeating: several days 6. Feeling bad about yourself - or that you are a failure or have let yourself and your family down: several days 7. Trouble concentrating on things, such as reading the newspaper or watching television: not at all 8. Moving or speaking so slowly that other people could have noticed? - Or the opposite - being so fidgety or restless that you have been moving around a lot more than usual: more than half the days 9. Thoughts that you would be better off or of hurting yourself in some way: not at all Total score: 11 Source: Developed by Drs. Sudheer Cruz, Tete Billings, Trent Rodriguez and colleagues, with an educational kelby from [employer]. Suicide Severity Rate CSSRS Have you wished you were or wished you could go to sleep and not wake up?: No Have you actually had any thoughts of killing yourself?: No CSSRS2 Have you been thinking about how you might do this?: No Screening Score Total Score: 0 Screening: Negative Mental Health Emergency Note Release [facility] release signed:: Yes Reason for Visit Client was reassessed at [facility] as he continues to wait for inpatient treatment to open up. Client was disheveled however, delusions observed on 08/30 and 08/31 appear to not be as prominent during this assessment. This assessment is completed face to face. In the last 2 weeks has the pt presented for ES prior to today?: No Client Information Client is: New Well Housed: Yes Non Suicidal Self Injury Current: No History: No Safety Risk/Harm to Self or Others Current Ideation to Harm Self or Others: No Risk: Does risk to harm exist?: No Risk: Moderate Risk Duty to warn indicated: No Asssessment/Mental Status Appearance: Disheveled Attitude: Cooperative and Friendly Behavior: Unremarkable Speech: Soft Affect: Flat Mood: Depressed and Anxious Thought process: Loose associations and Flight of ideas Hallucinations: No Delusions: No Attention: Wandering Perception: Not impaired Orientation: Fully orientated Memory: Impaired in: Recent Insight: Fair Judgement: Fair Neurovegetative Symptoms Sleep: Decrease Appetitie: No change Interests: Decrease Energy: Decrease Libido: Not applicable Substance Use: Do you use nicotine?: No Have you used substances in the last 7 days?: No Additional Issues: Assaultive/Threatening Behavior: No Medical Concerns: No Client engaged in active self harm w/weapon: No Threatening to run away: No Child reported abuse/neglect: No Voluntarily presenting for services: Yes Domestic violence is a concern: No Extreme Psychosis or extreme behavior is present: No Impression The client is a 77 year old male that presented to the ED on 08/29 in an altered mental status. 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 Client was asleep when this clinician arrived however, woke without incident and reported his sleep has improved. Client is identifying himself as himself and not God or the Cespedes today. He reported that he is at [facility] because he had not slept in 4 days and had some sort of delirium. He knows that he is at the hospital and that a similar experience happened about 10 years ago. Client makes good eye contact and is calm. His answers still at times do not match the question and he seems to focus on his reason for being admitted. He is still agreeable to a voluntary admission for assessment and treatment. Plan/Disposition Recommended Disposition: Hospitalization facilities contacted. Plan: Client will remain at [facility] until placed. A call was had with his to update her and to gather additional information regarding his intake. Referrals will be sent out to , [facility], [facility], , [facility] and [facility]. He will be assessed daily until placed.? Person reported agreement to plan: Yes Facilities contacted if Applicable [facility] Not accepted, Other [facility] Not accepted, No bed available [facility] (waiting for a nurse to call back. ) Not accepted, Other, [facility] Not accepted, (waiting for a nurse to call back. ) Other Other: Other ([facility] ) not accepted Other (Referral sent ) Reports/communication Outcome discussed with: ED/Personnel
--- NOTE | 2022-09-01 14:46 | NUR.NOTE ---
Care management is aware of meeting between and patient. Said visit is going nicely.Nursing Note:
[2022-09-01 16:31] LABS: Lyme Ab w Rflx to Lyme Confirm Negative (Negative)
--- NOTE | 2022-09-01 18:27 | IN_ITS ---
Date of service: 09/01/22 Time of Service: 11:23 PT Notes Visit Reasons: Delirium Physical Therapy Inpatient Initial Evaluation Date: 09/01/2022 Referring Doctor: Margareth Teague MD PT Orders: PT CONSULT: Limited ability Precautions: Fall. Standard. Activity as tolerated. Patient Profile/Admitting Diagnosis: Jones is a 76-year-old male admitted for management of acute delirium, altered mental status, insomnia, normocytic anemia, hypertension, and fever. PMHX: All Active Problems?(Updated 08/29/22 @ 15:56 by Shaan Coulter MD) AMS (altered mental status) (Acute) Insomnia (Acute) Acute delirium (Acute) Medical History? Cataract Diastolic murmur Social History/Home Situation: Indicates that he wiley not have a home to go to at this moment and knows that somebody is helping him get placed. States that he does not have a home to go to. Equipment Owned/DME: None Subjective: Denies headache, chest pain, and lightheadedness throughout session. Did verbalize feeling unsteady standing up without anything as he has not done anything since he came in. Agreeable to trying out front-wheeled walker for a walk with PT. Per Nurse Thomas, patient has been in need of sleep and has been trying his best to do so. CADERICK Mcgee present during th first half of session and CADERICK Warren for the latter half. Objective: General Observation: Telemetry monitoring in place. Mental Status: Alert and oriented as to person. Aware that he is in the hospital in [facility]. Able to pay attention, focus, and respond appropriately. Pain: Denies Vital Signs: Closely monitored via tele ROM: Right Upper Extremity: Shoulder Flexion WFL. Shoulder abduction WFL. Elbow flexion WFL. Wrist flexion WFL. Functional opening and closing of hand WFL. Left Upper Extremity: Shoulder Flexion WFL. Shoulder abduction WFL. Elbow flexion WFL. Wrist flexion WFL. Functional opening and closing of hand WFL. Right Lower Extremity: Hip flexion WFL. Hip abduction WFL. Knee flexion WFL. Ankle dorsiflexion WFL. Ankle plantarflexion WFL. Left Lower Extremity: Hip flexion WFL. Hip abduction WFL. Knee flexion WFL. Ankle dorsiflexion WFL. Ankle plantarflexion WFL. Strength: Right Upper Extremity: Shoulder flexors 5/5. Shoulder abductors 5/5. Elbow flexors 5/5. Elbow extensors 5/5. Water Reclamation Systems Operator strong. Left Upper Extremity: Shoulder flexors 5/5. Shoulder abductors 5/5. Elbow flexors 5/5. Elbow extensors 5/5. Water Reclamation Systems Operator strong. Right Lower Extremity: Hip flexors 4/5. Hip abductors 4/5. Knee flexors 5/5. Knee extensors 4/5. Ankle dorsiflexors 5/5. Ankle plantarflexors 5/5. Left Lower Extremity: Hip flexors 4/5. Hip abductors 4/5. Knee flexors 5/5. Knee extensors 4/5. Ankle dorsiflexors 5/5. Ankle plantarflexors 5/5. Bed Mobility/Transfers: Rolling independent Supine to sit independent Sit to supine independent Sit to stand independent Stand to sit independent Bed to bedside commode independent Bedside commode to bed independent Bed to reclining chair independent Reclining chair to bed independent Gait: Instructed patient with level surface ambulation of 400 feet requiring supervision with FWW. Erin decreased. Balance: Static Sitting: Normal Dynamic Sitting: Normal Static Standing: Fair Dynamic Standing: Fair Special Tests: Mobility Limitations Standardized Measure [facility]-PAC 6 clicks [facility] Mobility Inpatient Short Form: Raw Score: 23 CMS Score: 11% deficit Informed Consent/Education: Patient was instructed in purpose of PT consult and plan of care. Agreeable to proceed with established PT POC to achieve personal goals. Assessment: Patient presents with clinical signs and symptoms consistent with current/admitting diagnoses that have resulted to mobility limitations, gait instability, generalized weakness, and overall ADL decline as demonstrated by the following impairment level findings: 1. Extended stay weakness Impairments are contributing to the following functional limitations: 1. Difficulty with ambulation without assistive device 2. Increased completion time for mobility ADL performance 3. Difficulty with managing steps alone safely Patient is assessed as a 64211 low complexity based on the following: History: 76-year-old male with past medical history as indicated above Examination: Demonstrable impairment in strength, balance, and mobility level with underlying impairments and functional limitations as exhibited above as well as deficit score of 11% utilizing the [facility] Mobility Inpatient Short Form Presentation: Evolving Decision Makin moderate complexity Goals: Goals X1 week 1. Independent gait on level surface with use of no AD for at least 500 feet without report of pain nor dyspnea 2. Independent stair negotiation while holding onto B rails for at least 1 steps without report of pain nor dyspnea 3. Good static and dynamic standing balance/tolerance Plan of Care/Treatment Plan: 1-2x/day, 7 days/week x 1 week. Plan of care has been reviewed with the PLANT SPRAYER providing the service under Physical Therapy direction. Initiate Physical Therapy intervention for pain management as needed, strengthening, bed mobility, transfers, gait, stairs, balance training, and use of assistive device. DISCHARGE RECOMMENDATIONS: [] Home with no services [] Home with services [specify] [] Home with outpatient PT [] [] SNF for continued rehabilitation [] [] Correctional Case Manager Care [] [] SNF versus LTC based on ability to participate and progress [] [X] Supervised home setting for safety TREATMENT CODE/TIME: 54183 x 27 minutes beginning at 11:23 AM. Thank you for the opportunity to participate in the care of this patient. Briseyda Moy PT, DPT, CLT [facility] [place], [place]
--- NOTE | 2022-09-01 18:43 | PT.INDS ---
Date of service: 09/01/22 Time of Service: 15:50 PT Notes Visit Reasons: Delirium Physical Therapy Inpatient Discharge Summary Date: 09/01/2022 Dates of service: 09/01/2022 only Referring Doctor: Margareth Teague MD PT Orders: PT CONSULT: Limited ability Precautions: Fall. Standard. Activity as tolerated. Patient Profile/Admitting Diagnosis:? Jones is a 76-year-old male admitted for management of acute delirium, altered mental status, insomnia, normocytic anemia, hypertension, and fever. PMHX: All Active Problems?(Updated 08/29/22 @ 15:56 by Shaan Coulter MD) AMS (altered mental status) (Acute) Insomnia (Acute) Acute delirium (Acute) Medical History? Cataract Diastolic murmur Social History/Home Situation: Indicates that he wiley not have a home to go to at this moment and knows that somebody is helping him get placed.? States that he does not have a home to go to.? Equipment Owned/DME: None Subjective: Denies headache, chest pain, and lightheadedness throughout session.? Glendo a lot better and steadier this afternoon. Objective: General Observation: Telemetry monitoring in place. Mental Status: Alert and oriented as to person.? Aware that he is in the hospital in [facility].? Able to pay attention, focus, and respond appropriately. Pain: Denies Vital Signs: Closely monitored via tele ROM: Right Upper Extremity: ? Shoulder Flexion WFL. Shoulder abduction WFL. Elbow flexion WFL. Wrist flexion WFL. Functional opening and closing of hand WFL. Left Upper Extremity:? Shoulder Flexion WFL. Shoulder abduction WFL. Elbow flexion WFL. Wrist flexion WFL. Functional opening and closing of hand WFL. Right Lower Extremity: Hip flexion WFL. Hip abduction WFL. Knee flexion WFL. Ankle dorsiflexion WFL. Ankle plantarflexion WFL. Left Lower Extremity: Hip flexion WFL. Hip abduction WFL. Knee flexion WFL. Ankle dorsiflexion WFL. Ankle plantarflexion WFL. Strength: Right Upper Extremity: Shoulder flexors 5/5. Shoulder abductors 5/5. Elbow flexors 5/5. Elbow extensors 5/5. Janitorial Services Supervisor strong. Left Upper Extremity: Shoulder flexors 5/5. Shoulder abductors 5/5. Elbow flexors 5/5. Elbow extensors 5/5. Janitorial Services Supervisor strong. Right Lower Extremity: Hip flexors 4/5. Hip abductors 4/5. Knee flexors 5/5. Knee extensors 4/5. Ankle dorsiflexors 5/5. Ankle plantarflexors 5/5. Left Lower Extremity: Hip flexors 4/5. Hip abductors 4/5. Knee flexors 5/5. Knee extensors 4/5. Ankle dorsiflexors 5/5. Ankle plantarflexors 5/5. Bed Mobility/Transfers: Rolling independent Supine to sit independent Sit to supine independent Sit to stand independent Stand to sit independent Bed to bedside commode independent Bedside commode to bed independent Bed to reclining chair independent Reclining chair to bed independent Gait: Instructed patient with level surface ambulation of 400 feet requiring supervision with FWW with oxygen saturation above 95% on RA and HR range fo 75 to 98 bpm.? Erin decreased. Balance: Static Sitting: Normal Dynamic Sitting: Normal Static Standing: Good Dynamic Standing: Good 4-stage Balance test: Able to perform feet together and semi-tandem for 10 seconds but needed conatct guard assist for full tandem and one-legged stance. Special Tests: Mobility Limitations Standardized Measure [facility] 6 clicks Basic Mobility Inpatient Short Form: Raw Score: 24? CMS Score: 0% deficit? ? ? Assessment: Patient now able to walk 600 feet without assistive ambulatory device requiring just supervision because he is currently on safety precautions. He may walk with nursing staff to cover the big nurses' loop 2-3x using no AD to maintain monbility level. Able to perform standing level exercises on his own safely inside room. No skilled services needed at this time. DONAVAN Vidal notified of D/C from PT services. Goals: Goals X1 week 1. Independent gait on level surface with use of no AD for at least 500 feet without report of pain nor dyspnea MET 2. Independent stair negotiation while holding onto B rails for at least 1 steps without report of pain nor dyspnea MET 3. Good static and dynamic standing balance/tolerance MET DISCHARGE RECOMMENDATIONS: [] ? Home with no services [] ? Home with services [specify] [] ? Home with outpatient PT [] [] ? SNF for continued rehabilitation [] [] ? Media Production Operator Care [] [] ? SNF versus LTC based on ability to participate and progress [] [X]? Supervised home setting for safety TREATMENT CODE/TIME: 78681 x 19 minutes beginning at 15:50 PM. Thank you for the opportunity to participate in the care of this patient. Briseyda Moy PT, DPT, CLT [facility] [place], [place]
[2022-09-01] MEDS: Normal Saline Flush 10 ML SYR IVP ×2 (19:13→23:46)
[2022-09-01] MEDS: Melatonin 3 MG TAB PO (21:11)
[2022-09-01] MEDS: OLANZapine 5 MG TAB PO (21:11)
[2022-09-02] VITALS (18 sets, daily range): BP systolic 147–186; BP diastolic 72–93; PULSE 66–95; RESP 16–18; TEMP 37.1–37.6; O2SAT 94–98
[2022-09-02] MEDS: Heparin 5,000 UNITS/ML VIAL 5000 UNITS SC ×2 (05:24→17:55)
[2022-09-02] MEDS: cloNIDine 0.1 MG TAB PO ×2 (09:31→21:28)
[2022-09-02] MEDS: Ziprasidone 20 MG CAP PO ×2 (09:31→21:27)
--- NOTE | 2022-09-02 11:48 | NUR.NOTE ---
Mental health counselors meet with patient. Patient is at the outset a bit guarded but once the counselors formally introduce themselves, patient is more forthcoming and does tell the counselors he agrees with being transferred to another facility.Nursing Note:
--- NOTE | 2022-09-02 13:22 | W.PM.PROGNOT ---
Date of Service Date of service: 09/02/22 Time of Service: 13:22 Subjective Subjective Patient reports: no new complaints, tolerating a regular diet and afebrile; denies nausea, vomiting or shortness of breath Exam Narrative Exam Narrative: General: Sitting on edge of bed. Pleasant and interactive; not obviously hallucinating or paranoid. HEENT: sclera clear. MMM Heart: RRR, no murmur Lungs: CTAB Abdomen: soft, nontender, nondistended Extremities: no edema BLEs Objective Last Vital Signs Temp 37.4 C 09/02/22 12:48 Pulse 95 H 09/02/22 12:48 Resp 18 09/02/22 12:48 BP 148/72 H 09/02/22 12:48 Pulse Ox 98 09/02/22 12:48 Laboratory Results - last 24 hr 08/29/22 12:44 Lyme Disease Antibody Negative Time Spent with Patient Time Spent with Patient: 25-34 minutes Time was spent: preparing to see the patient(eg.review tests), obtaining and/or reviewing separately otained hiistory, referring, communicating with other health manager wound care, indepentently interpreting results and care coordination
--- NOTE | 2022-09-02 13:38 | PDOC.MHPN2 ---
Date of service: 09/02/22 Time of Service: 11:30 Mental Health Emergency Note Release [facility] release signed:: Yes Reason for Visit Reassessment of client In the last 2 weeks has the pt presented for ES prior to today?: No Client Information Client is: Adult Outpatient Well Housed: Yes Non Suicidal Self Injury Current: No History: No Safety Risk/Harm to Self or Others Current Ideation to Harm Self or Others: No Risk: Does risk to harm exist?: No Duty to warn indicated: No Asssessment/Mental Status Appearance: Well groomed Attitude: Cooperative Behavior: Unremarkable Speech: Soft Affect: Flat and Cogruent with mood Mood: Sad Thought process: Flight of ideas Hallucinations: No Delusions: No Attention: Unremarkable Perception: Not impaired Orientation: Fully orientated Memory: Impaired in: (Recent) Recent Insight: Fair Judgement: Fair Neurovegetative Symptoms Sleep: No change Appetitie: No change Interests: No change Energy: No change Libido: Not applicable Substance Use: Do you use nicotine?: No Have you used substances in the last 7 days?: No Additional Issues: Assaultive/Threatening Behavior: No Medical Concerns: No Client engaged in active self harm w/weapon: No Threatening to run away: No Child reported abuse/neglect: No Voluntarily presenting for services: Yes Domestic violence is a concern: No Extreme Psychosis or extreme behavior is present: No Impression The pt presented in an altered mental status and has continuted to remain there. He has thoughts that he feels are very real. The pt denies SI/HI/NSSIB Plan/Disposition Recommended Disposition: Hospitalization facilities contacted. Person reported agreement to plan: Yes Reports/communication Outcome discussed with: ED/Personnel
--- NOTE | 2022-09-02 14:11 | CMSP_ITS ---
Date of service: 09/02/22 Time of Service: 14:11 Care Management Safety Plan Status Status: Voluntary Reason for Wait Reason for Wait: Inpatient Admission Safety Plan Safety Plan: VOLUNTARY FOR INPATIENT PSYCHIATRIC STABILIZATION.? SAFETY PLAN: 1. Will remain on suicide precautions; in paper clothes or hospital scrubs. 2. Will remain in room under direct supervision of one-on-one staff at all times provided by [employer]; EMILIA, COMPUTER SUPPORT ANALYST bias cutting machine operator vertical. 3. May have paper cups, plates, finger foods as well as a cardboard spoon with which to eat meals. 4. Follow [facility] Management of the Admitted Behavioral Health Patient policy. 5. Comfort bath system, shower permitted with escort at RN discretion. 6. Personal belongings-soft items permitted at RN discretion. 7. Visitors- per patient preference, at RN discretion.? 8. Activities: soft cart items approved per RN discretion. 9.?Bathroom privileges available in room without limitation. 10. Phone: contact limited to legal at this time, via cordless phone at RN discretion. 11. Due to VOLUNTARY status, if patient wishes to leave [facility], staff will contact [facility] Crisis Screener ([phone]) and On-Call Contract Negotiation Manager ([phone]) as soon as possible. In the event of elopement, notify [facility] Police ([phone]). Patient is currently voluntarily at [facility] and seeking inpatient admission when a bed becomes available. [facility] Frontline Graphic Editor will continue seeking placement. Please contact the Manager Intern Contract Negotiation Manager ([phone]) and [facility] Graphic Editor ([phone]) for any needed changes in the Safety Plan. Safety plan has been provided to interdepartmental care team.
--- NOTE | 2022-09-02 14:11 | PDOC.CMSAFE ---
Date of service: 09/02/22 Time of Service: 14:11 Care Management Safety Plan Status Status: Voluntary Reason for Wait Reason for Wait: Inpatient Admission Safety Plan Safety Plan: VOLUNTARY FOR INPATIENT PSYCHIATRIC STABILIZATION.? SAFETY PLAN: 1. Will remain on suicide precautions; in paper clothes or hospital scrubs. 2. Will remain in room under direct supervision of one-on-one staff at all times provided by [employer]; EMILIA, DENTAL LABORATORY MANAGER technician support association. 3. May have paper cups, plates, finger foods as well as a cardboard spoon with which to eat meals. 4. Follow [facility] Management of the Admitted Behavioral Health Patient policy. 5. Comfort bath system, shower permitted with escort at RN discretion. 6. Personal belongings-soft items permitted at RN discretion. 7. Visitors- per patient preference, at RN discretion.? 8. Activities: soft cart items approved per RN discretion. 9.?Bathroom privileges available in room without limitation. 10. Phone: contact limited to legal at this time, via cordless phone at RN discretion. 11. Due to VOLUNTARY status, if patient wishes to leave [facility], staff will contact [facility] Crisis Screener ([phone]) and On-Call Book Jacket Cover Machine Operator ([phone]) as soon as possible. In the event of elopement, notify [facility] Police ([phone]). Patient is currently voluntarily at [facility] and seeking inpatient admission when a bed becomes available. [facility] Frontline Coding Validator will continue seeking placement. Please contact the Design Engineering Technician Book Jacket Cover Machine Operator ([phone]) and [facility] Coding Validator ([phone]) for any needed changes in the Safety Plan. Safety plan has been provided to interdepartmental care team.
--- NOTE | 2022-09-02 15:44 | NUR.NOTE ---
Patient given a cup of diet gingerale and cranberry juice on ice.Nursing Note:
[2022-09-02 18:45] LABS: Anaplasma phagocytophilum Negative (Negative); B. miyamotoi PCR Negative (Negative); Babesia divergens/MO-1 Negative (Negative); Babesia duncani Negative (Negative); Babesia microti Negative (Negative); Ehrlichia chaffeensis Negative (Negative); Ehrlichia ewingii/canis Negative (Negative); Ehrlichia muris eauclairensis Negative (Negative)
[2022-09-02 18:48] LABS: Specimen Source CSF
[2022-09-02] MEDS: Melatonin 3 MG TAB PO (21:27)
[2022-09-02] MEDS: Acetaminophen 325 MG TAB 650 MG PO (21:27)
[2022-09-02] MEDS: OLANZapine 5 MG TAB PO (21:27)
[2022-09-03] VITALS (14 sets, daily range): BP systolic 142–191; BP diastolic 56–81; PULSE 64–88; RESP 18–20; TEMP 37–37.3; O2SAT 97–98
[2022-09-03] MEDS: Heparin 5,000 UNITS/ML VIAL 5000 UNITS SC (05:56)
[2022-09-03] MEDS: cloNIDine 0.1 MG TAB PO ×2 (08:26→20:53)
[2022-09-03] MEDS: Ziprasidone 20 MG CAP PO ×2 (08:26→20:53)
[2022-09-03 10:00] LABS: Abs Immature Grans 0.01 10^3/uL (0.0-0.06); Absolute Basophil Count 0.03 10^3/uL (0.0-0.2); Absolute Eosinophil Count 0.07 10^3/uL (0.0-0.7); Absolute Lymphocyte Count 1.17 10^3/uL (1.2-3.4); Absolute Monocyte Count 0.36 10^3/uL (0.1-0.8); Absolute Neutrophil Count 3.02 10^3/uL (1.2-6.7); Basophils % 0.6; Eosinophils % 1.5; HCT 38.3 % (40.0-50.0); HGB 12.9 g/dL (13.5-17.5); Immature Grans % 0.2; Lymphocytes % 25.1; MCHC 33.7 % (32.0-36.0); MCV 89 fL (80-95); MPV 10.4 fL (8.0-11.0); Monocytes % 7.7; Neutrophils % 64.9; Platelet Count 276 10^3/uL (130-400); RDW 11.6 % (11.8-14.1); RDW-SD 37.1 fL; WBC 4.66 10^3/uL (4.4-10.8)
--- NOTE | 2022-09-03 10:05 | CMSP_ITS ---
Date of service: 09/03/22 Time of Service: 10:05 Care Management Safety Plan Status Status: Voluntary Reason for Wait Reason for Wait: Inpatient Admission Safety Plan Safety Plan: VOLUNTARY FOR INPATIENT PSYCHIATRIC STABILIZATION.? Updated clinicals faxed to [facility] [place] to support transfer coordination. Updates to safety plan to increase privileges per patient preference and RN recommendations. SAFETY PLAN: 1. Will remain on suicide precautions; in paper clothes or hospital scrubs. 2. Will remain under direct supervision of one-on-one staff at all times provided by [employer]; EMILIA, MEDICAL OBSERVER rope making machine operator. Permitted to ambulate outside of room with escort. 3. May have paper cups, plates, finger foods as well as a cardboard spoon with which to eat meals. 4. Follow [facility] Management of the Admitted Behavioral Health Patient policy. 5. Comfort bath system, shower permitted with escort at RN discretion. 6. Personal belongings-soft items permitted at RN discretion. 7. Visitors- per patient preference, at RN discretion.?( continues to visit daily) 8. Activities: soft cart items approved per RN discretion. 9.?Bathroom privileges available in room without limitation. 10. Phone: contact via cordless phone at RN discretion. 11. Due to VOLUNTARY status, if patient wishes to leave [facility], staff will contact [facility] Crisis Screener ([phone]) and On-Call Medical Collections ([phone]) as soon as possible. In the event of elopement, notify [facility] Police ([phone]). Patient is currently voluntarily at [facility] and seeking inpatient admission when a bed becomes available. [facility] Frontline President And Chief Commercial Officer will continue seeking placement. Please contact the Operations Welder Medical Collections ([phone]) and [facility] President And Chief Commercial Officer ([phone]) for any needed changes in the Safety Plan. Safety plan has been provided to interdepartmental care team.
--- NOTE | 2022-09-03 10:05 | PDOC.CMSAFE ---
Date of service: 09/03/22 Time of Service: 10:05 Care Management Safety Plan Status Status: Voluntary Reason for Wait Reason for Wait: Inpatient Admission Safety Plan Safety Plan: VOLUNTARY FOR INPATIENT PSYCHIATRIC STABILIZATION.? Updated clinicals faxed to [facility] [place] to support transfer coordination. Updates to safety plan to increase privileges per patient preference and RN recommendations. SAFETY PLAN: 1. Will remain on suicide precautions; in paper clothes or hospital scrubs. 2. Will remain under direct supervision of one-on-one staff at all times provided by [employer]; EMILIA, EMPLOYMENT LEGAL ASSISTANT superintendent transportation. Permitted to ambulate outside of room with escort. 3. May have paper cups, plates, finger foods as well as a cardboard spoon with which to eat meals. 4. Follow [facility] Management of the Admitted Behavioral Health Patient policy. 5. Comfort bath system, shower permitted with escort at RN discretion. 6. Personal belongings-soft items permitted at RN discretion. 7. Visitors- per patient preference, at RN discretion.?( continues to visit daily) 8. Activities: soft cart items approved per RN discretion. 9.?Bathroom privileges available in room without limitation. 10. Phone: contact via cordless phone at RN discretion. 11. Due to VOLUNTARY status, if patient wishes to leave [facility], staff will contact [facility] Crisis Screener ([phone]) and On-Call Ingot Passer ([phone]) as soon as possible. In the event of elopement, notify [facility] Police ([phone]). Patient is currently voluntarily at [facility] and seeking inpatient admission when a bed becomes available. [facility] Frontline Residence Hall Director will continue seeking placement. Please contact the Electric Motorman Ingot Passer ([phone]) and [facility] Residence Hall Director ([phone]) for any needed changes in the Safety Plan. Safety plan has been provided to interdepartmental care team.
[2022-09-03 10:13] LABS: Prothrombin Time 9.9 sec (9.3-11.0)
--- NOTE | 2022-09-03 14:44 | W.PM.PROGNOT ---
Date of Service Date of service: 09/03/22 Time of Service: 14:45 Assessment and Plan Assessment and plan (1) AMS (altered mental status): Status: Acute Assessment and plan: Delirium vs psychosis/kayc. Improving every day. Transition to clonidine patch. Continue gadiel al. Voluntary placement to a psychiatric facility pending. He is medically cleared. Transfer out of the ICU as has been behaving safely and has been cooperative. (2) Insomnia: Status: Acute Assessment and plan: Could be the cause of or part of #1. As above (3) Normocytic anemia: Status: Acute Assessment and plan: No evidenceo of iron, b12, or folate deficiency. Stable. No bleeding. F/u as outpatient. (4) Hypertension: Status: Chronic Assessment and plan: Monitor with addition of clonidine. (5) Fever: Status: Resolved Assessment and plan: Procalcitonin negative. COVID negative. UA negative> LP negative. CXR negative on 08/29/22. Blood cultures are not yet back. No role for empiric abx. Suspect this is due to the use of precedex. (6) DVT prophylaxis: Status: Acute Assessment and plan: Chemical DVT ppx held due to a nose bleed (x1; happens at home too). (7) Discharge planning issues: Status: Acute Assessment and plan: Full code Transfer out of the ICU. Mental health consulted. Anticipate discharge for psychiatric stabilization on voluntary basis. Subjective Subjective Interval history since last seen: Mr Poole had a good night and day so far. He has been very cooperative. Denies pain, dizziness, chest discomfort, shortness of breath, nausea. Exam Narrative Exam Narrative: General: elderly male who is awake, sitting up in a chair, A&Ox3, NAD, cooperative, calm HEENT: EOMI, MMM Heart: RRR, no m/r/g Lungs: CTAB Abdomen: soft, nontender, nondistended Extremities: no edema BLEs Objective Last Vital Signs Temp 37.1 C 09/03/22 08:35 Pulse 77 09/03/22 13:37 Resp 18 09/03/22 08:35 BP 143/56 H 09/03/22 13:37 Pulse Ox 98 09/03/22 13:37 Laboratory Results - last 24 hr 08/29/22 08/29/22 09/03/22 12:44 19:00 09:54 WBC 4.66 RBC 4.30 L Hgb 12.9 L Hct 38.3 L MCV 89 MCH 30.0 MCHC 33.7 RDW 11.6 L Plt Count 276 MPV 10.4 Immature Gran % 0.2 Neutrophils % 64.9 Lymphocytes % 25.1 Monocytes % 7.7 Eosinophils % 1.5 Basophils % 0.6 Nucleated RBC % 0.0 Absolute Neutrophils 3.02 Absolute Lymphocytes 1.17 L Absolute Monocytes 0.36 Absolute Eosinophils 0.07 Absolute Basophils 0.03 PT INR B. burgdorferi (PCR) Negative B. mayonii (PCR) Negative B.garinii/B.afzelii PCR Negative Fluid Comment See Comment B. divergens/MO-1 PCR Negative Babesia duncani (PCR) Negative Babesia microti DNA PCR Negative Lyme Specimen Source CSF E.chaffeensis DNA (PCR) Negative E.ewingii/canis DNA PCR Negative E.muris eauclairensis (PCR) Negative A. phagocytophilum (PCR) Negative Blood B. miyamotoi (PCR) Negative 09/03/22 09:54 WBC RBC Hgb Hct MCV MCH MCHC RDW Plt Count MPV Immature Gran % Neutrophils % Lymphocytes % Monocytes % Eosinophils % Basophils % Nucleated RBC % Absolute Neutrophils Absolute Lymphocytes Absolute Monocytes Absolute Eosinophils Absolute Basophils PT 9.9 INR 1.0 B. burgdorferi (PCR) B. mayonii (PCR) B.garinii/B.afzelii PCR Fluid Comment B. divergens/MO-1 PCR Babesia duncani (PCR) Babesia microti DNA PCR Lyme Specimen Source E.chaffeensis DNA (PCR) E.ewingii/canis DNA PCR E.muris eauclairensis (PCR) A. phagocytophilum (PCR) Blood B. miyamotoi (PCR) Time Spent with Patient Time Spent with Patient: 25-34 minutes Time was spent: preparing to see the patient(eg.review tests), obtaining and/or reviewing separately otained hiistory, ordering medications,tests, procedures, referring, communicating with other health field care manager, indepentently interpreting results, counseling the patient and care coordination
[2022-09-03] MEDS: cloNIDine 0.1 MG PATCH TD (16:20)
[2022-09-03] MEDS: Melatonin 3 MG TAB PO (21:51)
[2022-09-03] MEDS: OLANZapine 5 MG TAB PO (21:51)
[2022-09-04 03:34] VITALS: BP 155/72; PULSE 85; RESP 15; TEMP 36.2; O2SAT 96
[2022-09-04] MEDS: Omega-3 Fatty Acids 1000 MG CAP PO (08:00)
[2022-09-04 08:23] VITALS: BP 175/93; PULSE 79; RESP 18; TEMP 36.4; O2SAT 98
[2022-09-04] MEDS: cloNIDine 0.1 MG TAB PO ×2 (08:30→19:52)
[2022-09-04] MEDS: Ascorbic Acid 500 MG TAB 1000 MG PO (08:30)
[2022-09-04] MEDS: Ziprasidone 20 MG CAP PO ×2 (09:24→19:52)
--- NOTE | 2022-09-04 11:48 | PGE_ITS ---
Date of Service Date of service: 09/04/22 Time of Service: 11:49 Assessment and Plan Assessment and plan (1) AMS (altered mental status): Status: Acute Assessment and plan: Delirium vs psychosis/kacy. I do still see evidence of delusions/paranoia. Continue clonidine patch while overlapping with PO clonidine. Continue geodon, zyprexa. Voluntary placement to a psychiatric facility pending. He is medically cleared. (2) Insomnia: Status: Acute Assessment and plan: Could be the cause of or part of #1. As above (3) Normocytic anemia: Status: Acute Assessment and plan: No evidenceo of iron, b12, or folate deficiency. Stable. No bleeding. F/u as outpatient. (4) Hypertension: Status: Chronic Assessment and plan: Still rather uncontrolled. I am hoping for a more even BP curve once the clonidine patch has kicked in. (5) Fever: Status: Resolved Assessment and plan: Procalcitonin negative. COVID negative. UA negative> LP negative. CXR negative on 08/29/22. Blood cultures are not yet back. No role for empiric abx. Suspect this is due to the use of precedex. (6) DVT prophylaxis: Status: Acute Assessment and plan: Chemical DVT ppx held due to a nose bleed (x1; happens at home too). Resume SC heparin (7) Discharge planning issues: Status: Acute Assessment and plan: Full code Mental health consulted. Anticipate discharge for psychiatric stabilization on voluntary basis. Subjective Subjective Interval history since last seen: The patient has been calm and cooperative overnight. However, this morning his sitter reports him to be transiently confused. He now knows he is in the hospital and that today is . The patient remembers this. He describes several episodes of getting a mark vu feeling which he realizes are not real. He also describes several episodes which are like a movie strip running in head where he is sure that someone is going to destroy this hospital by taking out the 2nd and 3rd floor but first freeing everyone in the hospital by putting the temperature down to -35 degrees, and then I thought that it was happening to me, my legs were freezing and my lips were turning inwards so that I couldn't breathe. He states that he is no longer afraid for his life, but was when he first came to the hospital. He denies SI/HI. No dizziness, CP, SOB, n/v. Slept well. Exam Narrative Exam Narrative: General: elderly male who is awake, sitting up in a chair, A&Ox3, NAD, cooperative, does get quite anxious when talking about his visions. HEENT: EOMI, MMM Heart: RRR, no m/r/g Lungs: CTAB Abdomen: soft, nontender, nondistended Extremities: no edema BLEs Objective Last Vital Signs Temp 36.4 C L 09/04/22 08:23 Pulse 79 09/04/22 08:23 Resp 18 09/04/22 08:23 BP 175/93 H 09/04/22 08:23 Pulse Ox 98 09/04/22 08:23 Time Spent with Patient Time Spent with Patient: 25-34 minutes Time was spent: preparing to see the patient(eg.review tests), obtaining and/or reviewing separately otained hiistory, ordering medications,tests, procedures, referring, communicating with other health acute care registered nurse, indepentently interpreting results, counseling the patient and care coordination
--- NOTE | 2022-09-04 13:13 | NUR.NOTE ---
Conversation was held with patient's . There had been an erroneous report that she had filed a restraining order against him. She denied this stating only that if he were to be discharged, she would like to be notified. is here visiting patient now. Will continue to monitor. Nursing Note:
[2022-09-04 15:41] VITALS: BP 169/83; PULSE 73; RESP 16; TEMP 36.4; O2SAT 99
--- NOTE | 2022-09-04 16:53 | PDOC.MHPN2 ---
Date of service: 09/04/22 Time of Service: 12:21 PHQ-9 Over the last 2 weeks, how often have you been bothered by any of the following problems? 1. Little interest or pleasure in doing things: several days 2. Feeling down, depressed, or hopeless: several days 3. Trouble falling or staying asleep, or sleeping too much: more than half the days 4. Feeling tired or having little energy: nearly every day 5. Poor appetite or overeating: several days 6. Feeling bad about yourself - or that you are a failure or have let yourself and your family down: several days 7. Trouble concentrating on things, such as reading the newspaper or watching television: not at all 8. Moving or speaking so slowly that other people could have noticed? - Or the opposite - being so fidgety or restless that you have been moving around a lot more than usual: more than half the days 9. Thoughts that you would be better off or of hurting yourself in some way: not at all Total score: 11 Source: Developed by Drs. Sudheer Cruz, Tete Billings, Trent Rodriguez and colleagues, with an educational kelby from [employer]. Suicide Severity Rate CSSRS Have you wished you were or wished you could go to sleep and not wake up?: No Have you actually had any thoughts of killing yourself?: No CSSRS2 Have you been thinking about how you might do this?: No Screening Score Total Score: 0 Screening: Negative Mental Health Emergency Note Release [facility] release signed:: Yes Reason for Visit Reassessment of client In the last 2 weeks has the pt presented for ES prior to today?: No Client Information Client is: Adult Outpatient Well Housed: Yes Non Suicidal Self Injury Current: No History: No Safety Risk/Harm to Self or Others Current Ideation to Harm Self or Others: No Risk: Does risk to harm exist?: No Duty to warn indicated: No Asssessment/Mental Status Appearance: Well groomed Attitude: Cooperative Behavior: Unremarkable Speech: Soft Affect: Flat and Cogruent with mood Mood: Sad Thought process: Flight of ideas Hallucinations: No Delusions: No Attention: Unremarkable Perception: Not impaired Orientation: Fully orientated Memory: Impaired in: (Recent) Recent Insight: Fair Judgement: Fair Neurovegetative Symptoms Sleep: No change Appetitie: No change Interests: No change Energy: No change Libido: Not applicable Substance Use: Do you use nicotine?: No Have you used substances in the last 7 days?: No Additional Issues: Assaultive/Threatening Behavior: No Medical Concerns: No Client engaged in active self harm w/weapon: No Threatening to run away: No Child reported abuse/neglect: No Voluntarily presenting for services: Yes Domestic violence is a concern: No Extreme Psychosis or extreme behavior is present: No Impression The client is a 76 year old male that presented to the ED on 08/29 in an altered mental status. He lives with his and works at his business. The client is siting on the edge of his hospital bed dressed in proper paper hospital attire when this telegraphic typewriter mechanic arrives in person. When this telegraphic typewriter mechanic asks the client what brought him to the hospital he states: I don't really know, lack of sleep and I was a bit delusional and repetitive. The client reports that since being at the hospital he has been able to get some more sleep. Client appears to be confused when this telegraphic typewriter mechanic is asking him questions. For example the this telegraphic typewriter mechanic asks the client about his Mariam and he states: I think I have been seeing her, but I don't really recall. Client presents with very flat affect and shows very little emotion during this writers interaction with him. Client speaks in a very low tone of voice and does not wish to elaborate when asked clarifying questions by this telegraphic typewriter mechanic. Plan/Disposition Recommended Disposition: Hospitalization facilities contacted. Plan: Client has been accepted by [facility] for admission tomorrow afternoon. This telegraphic typewriter mechanic will work with [facility] care management in the morning to arrange transportation. This telegraphic typewriter mechanic will outreach to the clients to have a conversation with her and to update her on this writers interaction with the client today. Person reported agreement to plan: Yes Reports/communication Outcome discussed with: ED/Personnel (Verbal passover with [facility] nurse)
[2022-09-04] MEDS: Heparin 5,000 UNITS/ML VIAL 5000 UNITS SC (17:07)
[2022-09-04] MEDS: OLANZapine 5 MG TAB PO (21:26)
[2022-09-04] MEDS: Melatonin 3 MG TAB PO (21:26)
[2022-09-04 21:31] VITALS: BP 144/76; PULSE 75; RESP 15; TEMP 36; O2SAT 97
[2022-09-05] MEDS: Heparin 5,000 UNITS/ML VIAL 5000 UNITS SC (05:32)
[2022-09-05 06:53] LABS: HCT 38.1 % (40.0-50.0); HGB 12.4 g/dL (13.5-17.5); MCH 29.7 pg (27.0-33.0); MCHC 32.5 % (32.0-36.0); MCV 91 fL (80-95); MPV 10.9 fL (8.0-11.0); Platelet Count 277 10^3/uL (130-400); RBC 4.17 10^6/uL (4.36-5.78); RDW 11.7 % (11.8-14.1); RDW-SD 39.2 fL; WBC 5.14 10^3/uL (4.4-10.8)
[2022-09-05 07:09] VITALS: BP 204/72; PULSE 74; RESP 18; TEMP 36.3; O2SAT 96
[2022-09-05 08:43] VITALS: BP 171/81; PULSE 81; O2SAT 97
[2022-09-05] MEDS: Ascorbic Acid 500 MG TAB 1000 MG PO (09:15)
[2022-09-05] MEDS: cloNIDine 0.1 MG TAB PO (09:16)
[2022-09-05] MEDS: Omega-3 Fatty Acids 1000 MG CAP PO (09:16)
[2022-09-05] MEDS: Ziprasidone 20 MG CAP PO (09:16)
[2022-09-05 09:49] LABS: Source Nasal/Nares
--- NOTE | 2022-09-05 10:22 | W.PM.DS.N ---
Date of service: 09/05/22 Time of Service: 10:22 DS: Diagnosis Discharge Diagnosis (1) AMS (altered mental status): Status: Acute (2) Insomnia: Status: Acute (3) Normocytic anemia: Status: Acute (4) Hypertension: Status: Chronic (5) Fever: Status: Resolved Discharge Plan Disposition Patient Disposition: Transfer-Acute Inpatient Care Specific Acute Inpt Facility: Other Condition: Stable Discharge Details Reason For Visit: Delirium Admit Date/Time: 08/30/22 14:05 Admit Provider: Felipe Nicolas Attending Provider: Felipe Nicolas Primary Care Provider: Vishal Mcbride Hospital Course Hospital Course: This is a 76 year old male with no significant past medical history who reportedly has not been sleeping well who has developed increased confusion.? He was brought to the ED for evaluation and no medical condition to explain his symptoms. ? He was admitted for further evaluation and management. He initially received haldol and versed with no relief of his symptoms and was given zyprexa. He continued to have symptoms of delirium and medications adjusted. He has been stable on zyprexa and ziprasidone with no behavioral issues but not at baseline or ready for discharge to home. Mental health has been following and referrals placed for inpatient psychiatric management. He has been accepted at [facility] and has remained medically stable. He is being transported by ground EMS for further management and final disposition. discussed with Dr Mayberry. Home Meds and New Rx's Prescriptions: New clonidine 0.1 mg/24 hr Patch Weekly 0.1 mg transdermal Q7D Qty: 0 0RF olanzapine 5 mg Tablet 5 mg PO HS Qty: 0 0RF melatonin 3 mg Tablet 3 mg PO HS Qty: 0 0RF ziprasidone HCl 20 mg Capsule 20 mg PO BID Qty: 0 0RF docusate sodium [Colace] 100 mg Capsule 100 mg PO BID Qty: 0 0RF Continued ascorbic acid (vitamin C) [Vitamin C] 500 mg Tablet 1,000 mg PO DAILY omega-3 fatty acids Capsule 1 cap PO DAILY acetaminophen [Acetaminophen Extra Strength] 500 mg Tablet 500 mg PO Q12H PRN No Action glucosamine sulfate [Glucosamine] 500 mg Tablet 1,000 mg PO DAILY Discharge Instructions Instructions: Altered Mental Status (ED) Stand Alone Forms: Nursing Discharge Form Referrals: Vishal Mcbride [Primary Care Provider] - () Activity:: Activity as Tolerated Equipment/Supplies:: No Equipment Needed Diet:: As Tolerated Discharge Orders Discharge Orders: Discharge Order (Routine); Ordered 09/05/22 Ordered By: Vandana Varner DS: Summary Time Spent with Patient providing and/or coordinating discharge services: Less than 30 minutes Status at Discharge Functional status at discharge: independent ambulation Overall status at discharge: patient is not back to baseline Mental Status: other Speech and Movement: speech and movement normal Mood: congruent mood and other Affect: blunted Exam Const General: cooperative, comfortable and no acute distress Nutritional Appearance: average body habitus Orientation: alert, awake and oriented to person HENMT Head: normal to inspection and atraumatic Face and sinus: normal facial exam Resp Effort & Inspection: normal respiratory effort Cardio Rate: regular rate Rhythm: regular rhythm GI Inspection: normal to inspection Skin General skin exam: no rashes or lesions noted Psych Appearance: grossly normal Mental Status: other Speech and Movement: speech and movement normal Mood: congruent mood and other Affect: blunted Attitude: cooperative DS: Data Vitals/I&O Vitals and I&O: Vital Signs Temperature 36.3 C L 09/05/22 07:09 Temperature Source Tympanic 09/05/22 07:09 Pulse 81 09/05/22 08:43 Pulse Rhythm Regular 09/04/22 19:50 Pulse 75 09/01/22 23:14 Respiratory Rate 18 09/05/22 07:09 Respiratory Effort Normal 09/04/22 19:50 Respiratory Depth Normal 09/04/22 19:50 Respiratory Pattern Normal 09/04/22 19:50 Blood Pressure 171/81 H 09/05/22 08:43 Blood Pressure Mean 104 09/03/22 16:29 Blood Pressure Position Supine 09/03/22 16:00 Pulse Oximetry 97 09/05/22 08:43 Oxygen Delivery Method Room Air 09/05/22 08:43 Oxygen Flow Rate 0 09/05/22 08:43 Pain Level 0 09/04/22 21:31 Comment RN informed of BP 09/05/22 08:43 Intake & Output 09/04/22 09/04/22 09/05/22 11:59 23:59 11:59 Intake Total 110 / 110 480 / 480 Balance 110 / 110 480 / 480 Weight 72.983 kg Intake: Oral 110 / 110 480 / 480 Other: Comment Patient voids independently to toilet. independent Voiding Methods Bedside Commode Toilet Data Completed and Pending Labs on day of discharge: Labs from last 24 hours 09/05/22 09/05/22 09:45 06:40 WBC 5.14 RBC 4.17 L Hgb 12.4 L Hct 38.1 L MCV 91 MCH 29.7 MCHC 32.5 RDW 11.7 L Plt Count 277 MPV 10.9 COVID-19 Source Nasal/Nares SARS-CoV-2 (PCR) Pending [facility] All Active Problems (Updated 09/01/22 @ 14:02 by Margareth Teague MD) Hypertension (Chronic) Discharge planning issues (Acute) DVT prophylaxis (Acute) Normocytic anemia (Acute) AMS (altered mental status) (Acute) Insomnia (Acute) Acute delirium (Acute) Medical History Cataract Diastolic murmur Social History Smoking/Tobacco Use Status: Former Tobacco Use Quit Date: 04/09/66 Smoking risk assessment performed?: Yes Alcohol Intake: former Drug use: Never Substance use type: does not use Do you feel safe at home: Yes Do you feel safe in your relationship?: Yes Time Spent with Patient Time Spent with Patient: <45 minutes Time was spent: preparing to see the patient(eg.review tests), obtaining and/or reviewing separately otained hiistory, referring, communicating with other health direct care worker and care coordination
[2022-09-05 10:33] LABS: COVID-19 PCR Negative (Negative)
[2022-09-05] MEDS: Docusate Sodium 100 MG CAP PO (11:48)
--- NOTE | 2022-09-05 12:10 | PDOC.CMDIS ---
Date of service: 09/05/22 Time of Service: 12:10 LACE Index Scoring Tool Questions: Length of Stay (in days): 4 - 6 Was the patient admitted via the E.D.?: Yes E.D. Visits: 1 Answers: Total Score: 8 Risk of Readmission: Low Risk Care Management Discharge Plan Reason for Hospitalization: Delirium Discharge Plan: Jones will transfer to [facility] unit for inpatient psychiatric care. He will transport via [facility], coordinated by DONAVAN. CM faxed his negative repeat covid as well as a signed consent, at the request of [facility] staff. [facility] was informed of his transport time and discharge, and [facility] communicated with Jones's . Jones is agreeable and happy to be transferring to this facility which will provide appropriate care for his needs at this time. Patient/Family Education Needs: Review discharge instructions and limitations, as well as expectations for transfer, discussion of self care needs including ask me three. Services Needed at Discharge: Psychiatric Facility ([facility] ) and Transportation ([facility]) MH Services (Omit if N/A) Current MH Services: None Disposition Disposition: Other ([facility]) Transport via of: EMS ([facility])
--- NOTE | 2022-09-05 12:50 | NUR.NOTE ---
Nursing Note: Report given to Janet at [facility].
== END 2022-09-05 13:17 | disposition short-term general hospital (02) | DRG 880 ==
LOC: ER 14:57 → MS 15:04 → ICU 16:56 → MS 09-03 17:35
PROVIDERS: Family Medicine; Internal Medicine; Nurse Practitioner Acute Care; Admitting Provider Family Medicine; Emergency Provider Student in an Organized Health Care Education/Training Program; PCP Physician Assistant; Visit Provider Family Medicine
DX: F05 Delirium due to known physiological condition (principal); G47.00 Insomnia, unspecified; F22 Delusional disorders; R50.2 Drug induced fever; Z78.1 Physical restraint status; R45.1 Restlessness and agitation; D64.9 Anemia, unspecified; I10 Essential (primary) hypertension; T42.6X5A Adverse effect of other antiepileptic and sedative-hypnotic drugs, initial encounter
CPT/HCPCS: 36415; 80048; 80053; 80307; 82550; 82945; 84145; 85027; 87040; 87476; 87529; 87635; 87798; 89050; 89051; 93005; 97161; 97530; 70450; 71045; 80320; 81003; 81015; 81373; 82140; 82607; 82728; 82746; 83540; 83550; 83605; 83735; 83880; 84157; 84443; 84484; 85025; 85610; 86140; 86618; 87070; 87205; 93010; 99222; 99232; 99238; 99291; G0378; J0133; J1644; J2250; J3486

== ENCOUNTER 2023-01-10 08:54 | Outpatient (REF) | payer MEDICARE, SELFPAY ==
[2023-01-10 16:25] LABS: Anion Gap 7.8 mmol/L (3-11); BUN 19 mg/dL (7-18); CO2 29.2 mmol/L (21.0-32.0); CREATININE 0.8 mg/dL (0.70-1.30); Calcium 9.7 mg/dL (8.5-10.1); Chloride 97 mmol/L (98-107); Estimated GFR 92.29 (mL/min/1.73m2); Glucose 114 mg/dL (74-106); Potassium 4.8 mmol/L (3.5-5.1); Sodium 134 mmol/L (136-145)
== END 2023-01-10 08:55 | disposition home or self-care (01) ==
LOC: NCHCN 08:54
PROVIDERS: PCP Physician Assistant; Visit Provider Physician Assistant
DX: I10 Essential (primary) hypertension (principal)
CPT/HCPCS: 80048

== ENCOUNTER 2024-02-22 16:07 | Outpatient (REF) | payer MEDICARE, SELFPAY ==
[2024-02-22 18:12] LABS: HCT 39.2 % (40.0-50.0); MCH 29.7 pg (27.0-33.0); MCHC 33.2 % (32.0-36.0); MCV 90 fL (80-95); MPV 11.2 fL (8.0-11.0); Platelet Count 320 10^3/uL (130-400); RBC 4.37 10^6/uL (4.36-5.78); RDW 11.5 % (11.8-14.1); RDW-SD 37.7 fL; WBC 7.07 10^3/uL (4.4-10.8)
[2024-02-22 18:17] LABS: Anion Gap 7.9 mmol/L (3-11); BUN 33 mg/dL (7-18); CO2 32.1 mmol/L (21.0-32.0); Chloride 100 mmol/L (98-107); Glucose 96 mg/dL (74-106); Potassium 4.6 mmol/L (3.5-5.1); Sodium 140 mmol/L (136-145)
== END 2024-02-22 16:08 | disposition home or self-care (01) ==
LOC: NCHCN 16:07
PROVIDERS: PCP Physician Assistant; Visit Provider Physician Assistant
DX: I10 Essential (primary) hypertension (principal)
CPT/HCPCS: 80048; 85027

== ENCOUNTER 2025-03-27 13:13 | Outpatient (REF) | payer MEDICARE, SELFPAY ==
[2025-03-27 15:57] LABS: HCT 37.4 % (40.0-50.0); HGB 12.5 g/dL (13.5-17.5); MCH 28.5 pg (27.0-33.0); MCHC 33.4 % (32.0-36.0); MCV 85 fL (80-95); MPV 10.7 fL (8.0-11.0); Platelet Count 326 10^3/uL (130-400); RBC 4.38 10^6/uL (4.36-5.78); RDW 12.9 % (11.8-14.1); RDW-SD 39.8 fL; WBC 5.26 10^3/uL (4.4-10.8)
[2025-03-27 16:14] LABS: TSH (W/Ref FT4) 1.28 uIU/mL (0.55-4.78)
[2025-03-27 16:17] LABS: ALT 27 U/L (10-49); AST 27 U/L (<34); Albumin 4.8 g/dL (3.2-5.0); Alkaline Phosphatase 90 U/L (46-116); Anion Gap 9.2 mmol/L (3-11); BUN 21 mg/dL (9-23); Bilirubin, Total 0.5 mg/dL (0.2-1.2); CO2 28.0 mmol/L (20.0-31.0); Calcium 9.5 mg/dL (8.3-10.6); Chloride 100 mmol/L (98-107); Cholesterol 328 mg/dL (<200); Glucose 88 mg/dL (74-106); HDL Cholesterol 58 mg/dL (>or=40); Potassium 4.6 mmol/L (3.5-5.1); Sodium 137 mmol/L (136-145); Total Protein 7.3 g/dL (5.7-8.2)
[2025-03-27 16:49] LABS: Hemoglobin A1C 5.2 % (<5.7)
== END 2025-03-27 13:14 | disposition home or self-care (01) ==
LOC: NCHCN 13:13
PROVIDERS: PCP Physician Assistant; Visit Provider Physician Assistant
DX: Z51.81 Encounter for therapeutic drug level monitoring (principal)
CPT/HCPCS: 80053; 80061; 85027; 83036; 84443